=== PATIENT | male | born 1960 ===

== ENCOUNTER 2018-03-25 03:39 | Inpatient (IN) | payer MEDICAID ==
[2018-03-25 03:39] VITALS: BMI 28.1
--- NOTE | 2018-03-25 03:52 | C.PDOC ---
History Of Present Illness 57 y/o male with PMHx of hypertension brought in via ambulance for complaints of chest pain and SOB, worsening over the last couple of hours. No fevers or chills. En route, EMS gave the patient 4 SL nitro, 324 mg aspirin, and 20 mg Lasix. Reports he feels slightly better after. He describes pain as a dull, aching pressure. Patient is also mildly diaphoretic. Time Seen by Provider: 03/25/18 03:51 Chief Complaint (Nursing): Chest Pain History Per: Patient History/Exam Limitations: no limitations Onset/Duration Of Symptoms: Hrs Current Symptoms Are (Timing): Better Severity: Moderate Pain Scale Rating Of: 4 Quality: Dull, Aching, Pressure Associated Symptoms: Dyspnea, Diaphoresis Nitro Therapy Administered: 3, Per EMS, Partial Relief Recent travel outside of the [place]: No Additional History Per: EMS Past Medical History Reviewed: Historical Data, Nursing Documentation, Vital Signs Vital Signs: Last Vital Signs Temp 99.6 F 03/25/18 03:48 Pulse 93 H 03/25/18 04:45 Resp 20 03/25/18 04:45 BP 130/95 H 03/25/18 04:45 Pulse Ox 97 03/25/18 04:45 - Medical History PMH: HTN (non compliant with meds.) Family History: States: Unknown Family Hx - Social History Hx Tobacco Use: No Hx Alcohol Use: Yes Hx Substance Use: No Review Of Systems Constitutional: Positive for: Sweats. Negative for: Fever, Chills ENT: Negative for: Throat Pain Cardiovascular: Positive for: Chest Pain. Negative for: Palpitations Respiratory: Positive for: Shortness of Breath Gastrointestinal: Negative for: Nausea, Vomiting Genitourinary: Negative for: Dysuria Musculoskeletal: Negative for: Back Pain Skin: Negative for: Rash Neurological: Negative for: Weakness, Numbness, Dizziness Psych: Positive for: Anxiety Physical Exam - Physical Exam Appears: Non-toxic, In Acute Distress (appears in discomfort, 4/10) Skin: Warm, Dry Head: Normacephalic Eye(s): bilateral: Normal Inspection Oral Mucosa: Moist Neck: Trachea Midline, Supple Chest: Symmetrical Cardiovascular: Rhythm Regular Respiratory: Rales (at the bases), No Rhonchi, No Wheezing Gastrointestinal/Abdominal: Soft, No Tenderness, No Distention Back: Normal Inspection Extremity: Normal ROM Extremity: Bilateral: Atraumatic, Normal Color And Temperature, Normal ROM Pulses: Left Dorsalis Pedis: Normal, Right Dorsalis Pedis: Normal Neurological/Psych: Oriented x3 Gait: Steady ED Course And Treatment - Laboratory Results Result Diagrams: 03/25/18 04:01 03/25/18 04:36 ECG: Interpreted By Me, Viewed By Me ECG Rhythm: Sinus Tachycardia (1121), Nonspecific Changes O2 Sat by Pulse Oximetry: 100 (RA) Pulse Ox Interpretation: Normal Progress Note: Ordered labs, EKG, CXR. Patient given IV Zofran and Morphine. Disposition Discussed With Dr.: Pramod Michelle Comment: accepted the pt onhis service and took over the care at4:40 AM Doctor Will See Patient In The: ED Counseled Patient/Family Regarding: Studies Performed, Diagnosis - Disposition Disposition: HOSPITALIZED Disposition Time: 03:52 Condition: FAIR Forms: [facility] (Czech) - POA Present On Arrival: None - Clinical Impression Clinical Impression: Chest pain, Dyspnea, CHF (congestive heart failure) - Scribe Statement The provider has reviewed the documentation as recorded by the Scribe (Cherelle Crow) Provider Attestation: All medical record entries made by the Scribe were at my direction and personally dictated by me. I have reviewed the chart and agree that the record accurately reflects my personal performance of the history, physical exam, medical decision making, and the department course for this patient. I have also personally directed, reviewed, and agree with the discharge instructions and disposition. Decision To Admit - Pt Status Changed To: Hospital Disposition Of: Inpatient - Admit Certification Admit to Inpatient:: After my assessment, the patient will require hospitalization for at least two midnights. This is because of the severity of symptoms shown, intensity of services needed, and/or the medical risk in this patient being treated as an outpatient. - InPatient: Physician Admission Certification: I certify that this patient requires 2 or more midnights of care for the following reason:: After my assessment, the patient will require hospitalization for at least two midnights. This is because of the severity of symptoms shown, intensity of services needed, and/or the medical risk in this patient being treated as an outpatient. - . Bed Request Type: Telemetry Admitting Physician: Pramod Michelle Patient Diagnosis: Chest pain, Dyspnea
[2018-03-25 04:07] LABS: BASO # 0.1 K/uL (0.0-0.2); BASO % 1.4 % (0.0-2.0); EOS # 0.2 K/uL (0.0-0.7); EOS % 2.7 % (0.0-4.0); HEMOGLOBIN 13.8 g/dL (12.0-18.0); LYMPH # 1.1 K/uL (1.0-4.3); LYMPH % 14.8 % (20.0-40.0); MEAN CELL VOLUME 93.5 fL (80.0-94.0); MEAN CORPUSCULAR HEMOGLOBIN 30.5 pg (27.0-31.0); MEAN CORPUSCULAR HGB CONC 32.7 g/dL (33.0-37.0); MEAN PLATELET VOLUME 10.5 fL (7.2-11.7); MONO # 0.5 K/uL (0.0-0.8); MONO % 7.3 % (0.0-10.0); NEUT # 5.5 K/uL (1.8-7.0); NEUT % 73.8 % (50.0-75.0); NRBC % 0.1 % (0.0-2.0); RBC 4.52 Mil/uL (4.40-5.90); RED CELL DISTRIBUTION WIDTH 13.9 % (11.5-14.5); URINE BILIRUBIN NEGATIVE (NEGATIVE); URINE BLOOD NEGATIVE (NEGATIVE); URINE CLARITY Clear (Clear); URINE COLOR Colorless (YELLOW); URINE GLUCOSE (UA) NORMAL (Normal); URINE LEUKOCYTE ESTERASE NEG Leu/uL (Negative); URINE PROTEIN NEGATIVE (NEGATIVE); URINE UROBILINOGEN NORMAL mg/dL (0.2-1.0); WHITE BLOOD COUNT 7.4 K/uL (4.8-10.8)
[2018-03-25 04:10] LABS: INR 0.9; PROTHROMBIN TIME 10.3 SECONDS (9.7-12.2)
--- NOTE | 2018-03-25 04:27 | CP.PCM.HP ---
History of Present Illness - History of Present Illness History of Present Illness: Medicine Note for Hospitalist Service CC: shortness of breath HPI: This is a 57 year old male with PMHx of Hypertension not on medication, who presents to the ED with gradual shortness of breath. Patient reports he has been more aware of his breathing the past 1-2 months. Prior to this he was able to ambulate with no issues, however now he feels short of breath when he ambulates more than 1-2 blocks and when he climbs up 1 flight of stairs. He lives on the 3rd floor of his apartment complex, and after the first flight, he now need to stop and rest. At night he admits to sleeping with 1 pillow but more inclined. The past 2 nights he was woken up by the sensation of shortness of breath and choking. On day of admission, he started it was the worse it has ever been. Denied any follow up with PMD or cardio. Denied any associated fever , chills, headache, chest pain, abdominal pain, n/v/d/c, or urinary symptoms. PMHx: Hypertension, Alcohol Use Disorder, ?? History of Right sided Spontaneous Pneumothorax (2014) PSHx: Chest tube Meds: Denied All: NKDA SHx: Denied tobacco or illicit drug use. Admits to drinking beers during festivities FHx: Unremarkable for cardiac issues, CVAs, or malignancies PMD: None Present on Admission - Present on Admission Any Indicators Present on Admission: No Past Patient History - Past Social History Smoking Status: Never Smoked - CARDIAC Hx Hypertension: Yes (non compliant with meds.) - PSYCHIATRIC Hx Substance Use: No Meds Allergies/Adverse Reactions: Allergies Allergy/AdvReac Type Severity Reaction Status Date / Time No Known Allergies Allergy Verified 03/25/18 03:55 Physical Exam - Constitutional Appears: No Acute Distress - Head Exam Head Exam: NORMAL INSPECTION, NORMOCEPHALIC - Eye Exam Eye Exam: EOMI, Normal appearance, PERRL. absent: Nystagmus, Scleral icterus Pupil Exam: NORMAL ACCOMODATION - ENT Exam ENT Exam: Mucous Membranes Moist, Normal Exam - Neck Exam Neck exam: Positive for: Normal Inspection Additional comments: no JVD noted - Respiratory Exam Respiratory Exam: Rales (bilaterally R > L ) - Cardiovascular Exam Cardiovascular Exam: Tachycardia, Gallop - GI/Abdominal Exam GI & Abdominal Exam: Normal Bowel Sounds, Soft. absent: Distended, Guarding, Mass, Organomegaly, Rebound, Tenderness Additional comments: no hepatojugular reflex noted - Rectal Exam Rectal Exam: Deferred - Extremities Exam Extremities exam: Positive for: normal inspection, pedal edema, pedal pulses present. Negative for: tenderness Additional comments: mid pires bilaterally - Back Exam Back exam: NORMAL INSPECTION - Neurological Exam Neurological exam: Alert, Oriented x3 - Psychiatric Exam Psychiatric exam: Normal Affect, Normal Mood - Skin Skin Exam: Dry, Intact, Normal Color, Warm Results - Vital Signs Recent Vital Signs: Last Vital Signs Temp 99.6 F 03/25/18 03:48 Pulse 92 H 03/25/18 04:18 Resp 20 03/25/18 04:18 BP 104/69 03/25/18 04:18 Pulse Ox 97 03/25/18 04:18 - Labs Result Diagrams: 03/25/18 04:01 03/25/18 04:36 Labs: Laboratory Results - last 24 hr 03/25/18 03/25/18 03/25/18 04:01 04:01 04:01 WBC 7.4 D RBC 4.52 Hgb 13.8 Hct 42.2 MCV 93.5 MCH 30.5 MCHC 32.7 L RDW 13.9 Plt Count 195 MPV 10.5 Neut % (Auto) 73.8 Lymph % (Auto) 14.8 L [place] % (Auto) 7.3 Eos % (Auto) 2.7 Baso % (Auto) 1.4 Neut # (Auto) 5.5 Lymph # (Auto) 1.1 [place] # (Auto) 0.5 Eos # (Auto) 0.2 Baso # (Auto) 0.1 PT 10.3 INR 0.9 APTT 26 Urine Color Colorless Urine Clarity Clear Urine pH 5.0 Ur Specific [place] 1.004 Urine Protein Negative Urine Glucose (UA) Normal Urine Ketones Negative Urine Blood Negative Urine Nitrate Negative Urine Bilirubin Negative Urine Urobilinogen Normal Ur Leukocyte Esterase Neg Urine WBC (Auto) 1 Urine RBC (Auto) 2 Assessment & Plan - Assessment and Plan (Free Text) Plan: New Onset Heart Failure - Dyspnea on exertion, orthopnea, generalized fatigue, S3 on exam, bilateral LE edema - EKG: Sinus tachycardia with LVH - CXR: Cardiomegaly noted on portable, effusions bilaterally - BNP: 1090 - Received lasix 40mg IV x 1 in ED - F/U ECHO - Daily Weight, I & Os, fluid and salt restriction - Started on ASA, Lisinopril 2.5mg PO daily, Coreg 3.125mg PO BID, Crestor 5mg PO QHS, Lasix 20mg PO daily (will adjust as needed) Hypertension - Lipid Panel, Thyroid studies WNL - Started on ASA, Lisinopril 2.5mg PO daily, Coreg 3.125mg PO BID, Crestor 5mg PO QHS, Lasix 20mg PO daily (will adjust as needed) - F/U ECHO, HgA1C Hx Alcohol Use Disorder - Cessation encouraged Prophylactic Measures - GI PPX: Protonix - DVT PPX: SCDs, HepQ12 - HHD with fluid and salt restriction DW Dr. Michelle, Lori Cárdenas DO, PGY2
[2018-03-25 04:59] LABS: ALB/GLOB RATIO 1.4 (1.0-2.1); ALT/SGPT 70 U/L (21-72); AST/SGOT 59 U/L (17-59); BLOOD UREA NITROGEN 12 mg/dL (9-20); CALCIUM 8.2 mg/dl (8.6-10.4); GFR AFRICAN-AMERICAN > 60; GFR NON-AFRICAN AMERICAN > 60; LIPASE 64 U/L (23-300)
[2018-03-25 05:10] LABS: B-TYPE NATRIURETIC PEPTIDE 1090 pg/mL (0-900)
--- NOTE | 2018-03-25 07:13 | CP.PCM.PN ---
Subjective - Date & Time of Evaluation Date of Evaluation: 03/25/18 Time of Evaluation: 07:45 - Subjective Subjective: PGY [address] Prasanna Rubalcava. Patient seen and examined at bedside. Patient had no overnight acute events. Patient states his breathing is much improved and denies chest pain, difficulty breathing, constipation, difficulty voiding. Objective - Vital Signs/Intake and Output Vital Signs (last 24 hours): Temp Pulse Resp BP Pulse Ox 99.6 F 99 H 25 H 155/102 H 99 03/25/18 03:48 03/25/18 06:10 03/25/18 06:10 03/25/18 06:10 03/25/18 06:10 Intake and Output: 03/25/18 03/25/18 06:59 18:59 Output Total 700 Balance -700 - Medications Medications: Current Medications Aspirin (Aspirin Chewable) 81 mg PO DAILY [facility] Furosemide (Lasix) 40 mg IVP DAILY [facility] Heparin Sodium (Porcine) (Heparin) 5,000 units SC Q8 [facility] Last Admin: 03/25/18 06:16 Dose: 5,000 units Lisinopril (Zestril) 10 mg PO DAILY [facility] Pantoprazole Sodium (Protonix Ec Tab) 20 mg PO DAILY [facility] Rosuvastatin Calcium (Crestor) 5 mg PO HS [facility]KKI - Labs Labs: 03/25/18 04:01 03/25/18 04:36 PT 10.3 SECONDS (9.7-12.2) 03/25/18 04:01 INR 0.9 03/25/18 04:01 APTT 26 SECONDS (21-34) 03/25/18 04:01 - Constitutional Appears: Non-toxic, No Acute Distress - Head Exam Head Exam: ATRAUMATIC, NORMAL INSPECTION, NORMOCEPHALIC - Eye Exam Eye Exam: EOMI, Normal appearance Pupil Exam: NORMAL ACCOMODATION - ENT Exam ENT Exam: Mucous Membranes Moist - Neck Exam Neck Exam: Full ROM, Normal Inspection - Respiratory Exam Respiratory Exam: Rales Additional comments: B/ L lower lobe rales - Cardiovascular Exam Cardiovascular Exam: Tachycardia, +S1, +S2. absent: Murmur - GI/Abdominal Exam GI & Abdominal Exam: Soft, Normal Bowel Sounds. absent: Firm, Guarding, Rigid - Extremities Exam Extremities Exam: Full ROM, Pedal Edema. absent: Calf Tenderness Additional comments: Faint pitting edema b/l LE - Neurological Exam Neurological Exam: Alert, Awake, Oriented x3 - Psychiatric Exam Psychiatric exam: Normal Affect, Normal Mood - Skin Skin Exam: Dry, Intact, Normal Color, Warm Assessment and Plan - Assessment and Plan (Free Text) Assessment: New Onset Heart Failure - Dyspnea on exertion, orthopnea, generalized fatigue, S3 on exam, bilateral LE edema - EKG: Sinus tachycardia with LVH - CXR: Cardiomegaly noted on portable, effusions bilaterally - BNP: 1090 - Received lasix 40mg IV x 1 in ED - ECHO: LV moderately dilated, Biplane EF ~30%, global hypokinesis of LV, LA midly dilated - possible D/C tomorrow 03/26 - Daily Weight, I & Os, fluid and salt restriction - ASA, Lisinopril 2.5mg PO daily, Coreg 3.125mg PO BID, Crestor 5mg PO QHS, Lasix 20mg PO BID (will adjust as needed) Hypertension - Lipid Panel WNL, Thyroid studies WNL - Started on ASA, Lisinopril 2.5mg PO daily, Coreg 3.125mg PO BID, Crestor 5mg PO QHS, Lasix 20mg PO daily (will adjust as needed) - HgA1C 5.9 Hx Alcohol Use Disorder - Cessation encouraged Prophylactic Measures - GI PPX: Protonix - DVT PPX: SCDs, HepQ12 - HHD with fluid and salt restriction Plan discussed with Dr. Rubalcava.
[2018-03-25 07:43] VITALS: RESP 20
--- NOTE | 2018-03-25 07:56 | CP.PCM.PN ---
Subjective - Date & Time of Evaluation Date of Evaluation: 03/25/18 Time of Evaluation: 07:50 - Subjective Subjective: New onset sob within 2 months, with some orthpnea, EKG showing LVH with strain pattern, HTN, leg edema noticed in ER DD of HTN/CHF, vs HTN/CAD, combo of above. Plan UDS start with diuresis, at least lasix 40mg iv once, if UDS negative start with coreg today, if bp stable may start with ACEI tomorrow, Echo mean while, may need stress test as out patient if trop is normal. See orders for detail. Objective - Vital Signs/Intake and Output Vital Signs (last 24 hours): Temp Pulse Resp BP Pulse Ox 99.0 F 90 20 102/77 97 03/25/18 07:41 03/25/18 07:41 03/25/18 07:41 03/25/18 07:41 03/25/18 07:41 Intake and Output: 03/25/18 03/25/18 06:59 18:59 Output Total 700 Balance -700 - Medications Medications: Current Medications Aspirin (Aspirin Chewable) 81 mg PO DAILY [facility] Carvedilol (Coreg) 3.125 mg PO BID [facility] Furosemide (Lasix) 40 mg IVP DAILY [facility] Heparin Sodium (Porcine) (Heparin) 5,000 units SC Q8 [facility] Last Admin: 03/25/18 06:16 Dose: 5,000 units Pantoprazole Sodium (Protonix Ec Tab) 20 mg PO DAILY [facility] Rosuvastatin Calcium (Crestor) 5 mg PO HS [facility] - Labs Labs: 03/25/18 04:01 03/25/18 04:36 PT 10.3 SECONDS (9.7-12.2) 03/25/18 04:01 INR 0.9 03/25/18 04:01 APTT 26 SECONDS (21-34) 03/25/18 04:01
--- NOTE | 2018-03-25 08:50 | RAD ---
Date of service: 03/25/2018 PROCEDURE: CHEST RADIOGRAPH, 1 VIEW HISTORY: chest pain COMPARISON: 10/14/2016. FINDINGS: LUNGS: The lungs are well inflated. There is mild pulmonary venous congestion. PLEURA: No pneumothorax or pleural fluid seen. CARDIOVASCULAR: There is severe cardiomegaly. OSSEOUS STRUCTURES: No significant abnormalities. VISUALIZED UPPER ABDOMEN: Normal. OTHER FINDINGS: None. IMPRESSION: Severe cardiomegaly and mild pulmonary venous congestion. No active pulmonary disease.
[2018-03-25 09:18] LABS: BARBITURATES, UR NEGATIVE (NEGATIVE); BENZODIAZEPINES, UR NEGATIVE (NEGATIVE); OPIATES, UR NEGATIVE (NEGATIVE); PHENCYCLIDINE, UR NEGATIVE (NEGATIVE)
[2018-03-25] MEDS: Pantoprazole 20 mg EC Tab PO SCH (10:34)
[2018-03-25] MEDS ORDERED: Perflutren Lipid Microsphere 1.5 ML SUS IV ONE (11:29)
--- NOTE | 2018-03-25 12:37 | CARD ---
APPROVED REPORT Date of service: 03/25/2018 EKG Measurement Heart [id number] <Conclusion> Sinus tachycardia Left axis deviation Voltage criteria for left ventricular hypertrophy Nonspecific T wave abnormality Abnormal ECG
[2018-03-25 13:37] LABS: CK-MB 0.6 ng/mL (0.0-3.38); TROPONIN I 0.028 ng/mL (0.00-0.120)
--- NOTE | 2018-03-25 15:30 | CARD ---
APPROVED REPORT Date of service: 03/25/2018 EXAM: Two-dimensional and M-mode echocardiogram with Doppler, color Doppler with contrast. Other Information Quality : GoodRhythm : INDICATION Dyspnea Congestive Heart Failure Echo Enhancing Agent Indication: Endocardial border delineation Agent/Amount Used: Definity 2D DIMENSIONS IVSd1.1 (0.7-1.1cm)LVDd6.7 (3.9-5.9cm) PWd1.2 (0.7-1.1cm)LVDs5.9 (2.5-4.0cm) FS (%) 11.1 % M-Mode DIMENSIONS Left Atrium (MM)4.92 (2.5-4.0cm)IVSd1.25 (0.7-1.1cm) Aortic Root3.47 (2.2-3.7cm)LVDd6.82 (4.0-5.6cm) Aortic Cusp Exc.2.23 (1.5-2.0cm)PWd1.16 (0.7-1.1cm) FS (%) 9 %LVDs6.22 (2.0-3.8cm) LVEF (%)28 (>50%) Mitral Valve MV E Ucwnbino35.5cm/sMV A Hahbezos33.5cm/sE/A ratio0.9 TDI E/Lateral E'0.0E/Medial E'0.0 Tricuspid Valve TR Peak [id number]/sTR Peak [id number] LEFT VENTRICLE The Left Ventricle is moderately dilated. There is borderline concentric left ventricular hypertrophy. Left ventricle systolic function is severely impaired. Biplane Ejection Fraction - 30% There is global hypokinesis of the left ventricle. Transmitral Doppler flow pattern is Grade I-abnormal relaxation pattern. No left ventricle thrombus noted on this study using Definity IV contrast RIGHT VENTRICLE The right ventricle is mildly dilated. Systolic function is mildly reduced. ATRIA The left atrium is moderately dilated. The right atrium is mildly dilated. AORTIC VALVE The aortic valve is normal in structure. No aortic regurgitation is present. There is no aortic valvular stenosis. MITRAL VALVE The mitral valve is normal in structure. Mitral regurgitation is mild. TRICUSPID VALVE The tricuspid valve is normal in structure. There is moderate tricuspid regurgitation. Right ventricular systolic pressure is estimated at - 50 mmHg. There is moderate pulmonary hypertension. PULMONIC VALVE The pulmonary valve is normal in structure. There is trace pulmonic valvular regurgitation. GREAT VESSELS The aortic root is normal in size. The IVC was not well visualized. PERICARDIAL EFFUSION There is no pericardial effusion. <Conclusion> There is borderline concentric left ventricular hypertrophy. The left ventricle is moderately dilated with global hypokinesis. No left ventricle thrombus noted on this study using Definity contrast Left ventricle systolic function is severely impaired. Biplane Ejection Fraction - 30% Transmitral Doppler flow pattern is Grade I-abnormal relaxation pattern. The right ventricular systolic function is mildly reduced. Mild to moderate bi-atrial enlargement Mild mitral regurgitation. There is moderate tricuspid regurgitation. Right ventricular systolic pressure is estimated at - 50 mmHg compatible moderate pulmonary hypertension. There is no pericardial effusion.
--- NOTE | 2018-03-25 19:31 | CP.PCM.CON ---
History of Present Illness - History of Present Illness History of Present Illness: HPI: This is a 57 year old male with PMHx of Hypertension not on medication, who presents to the ED with gradual shortness of breath. Patient reports he has been more aware of his breathing the past 1-2 months. Prior to this he was able to ambulate with no issues, however now he feels short of breath when he ambulates more than 1-2 blocks and when he climbs up 1 flight of stairs. He lives on the 3rd floor of his apartment complex, and after the first flight, he now need to stop and rest. At night he admits to sleeping with 1 pillow but more inclined. The past 2 nights he was woken up by the sensation of shortness of breath and choking. On day of admission, he started it was the worse it has ever been. Denied any follow up with PMD or cardio. Denied any associated fever , chills, headache, chest pain, abdominal pain, n/v/d/c, or urinary symptoms.At the time of exam feeling better. Past Patient History - Past Medical History & Family History Past Medical History?: Yes - Past Social History Smoking Status: Never Smoked - CARDIAC Hx Cardiac Disorders: Yes Hx Hypertension: Yes (non compliant with meds.) - PULMONARY Hx Respiratory Disorders: No - NEUROLOGICAL Hx Neurological Disorder: No - HEENT Hx HEENT Problems: No - RENAL Hx Chronic Kidney Disease: No - ENDOCRINE/METABOLIC Hx Endocrine Disorders: No - HEMATOLOGICAL/ONCOLOGICAL Hx Blood Disorders: No - INTEGUMENTARY Hx Dermatological Problems: No - MUSCULOSKELETAL/RHEUMATOLOGICAL Hx Falls: No - GASTROINTESTINAL Hx Gastrointestinal Disorders: No - GENITOURINARY/GYNECOLOGICAL Hx Genitourinary Disorders: No - PSYCHIATRIC Hx Psychophysiologic Disorder: No Hx Substance Use: No - SURGICAL HISTORY Hx Surgeries: Yes Other/Comment: chest tube - ANESTHESIA Hx Anesthesia: No Hx Anesthesia Reactions: No Hx Malignant Hyperthermia: No Has any member of the family had a problem w/ anesthesia?: No Meds Allergies/Adverse Reactions: Allergies Allergy/AdvReac Type Severity Reaction Status Date / Time coconut Allergy ITCHING Verified 03/25/18 12:53 - Medications Medications: Current Medications Aspirin (Aspirin Chewable) 81 mg PO DAILY [facility] Last Admin: 03/25/18 10:34 Dose: 81 mg Carvedilol (Coreg) 3.125 mg PO BID [facility] Last Admin: 03/25/18 17:49 Dose: 3.125 mg Furosemide (Lasix) 20 mg PO BID [facility] Last Admin: 03/25/18 17:49 Dose: 20 mg Heparin Sodium (Porcine) (Heparin) 5,000 units SC Q8 [facility] Last Admin: 03/25/18 13:22 Dose: 5,000 units Lisinopril (Zestril) 2.5 mg PO DAILY [facility] Last Admin: 03/25/18 10:42 Dose: 2.5 mg Pantoprazole Sodium (Protonix Ec Tab) 20 mg PO DAILY [facility] Last Admin: 03/25/18 10:34 Dose: 20 mg Pneumococcal Polyvalent Vaccine (Pneumovax 23 Vaccine) 0.5 ml IM .ONCE ONE Stop: 03/26/18 10:01 Rosuvastatin Calcium (Crestor) 5 mg PO [facility] Physical Exam - Head Exam Head Exam: NORMOCEPHALIC - Neck Exam Neck exam: Positive for: Normal Inspection - Respiratory Exam Respiratory Exam: NORMAL BREATHING PATTERN - Cardiovascular Exam Cardiovascular Exam: REGULAR RHYTHM - Extremities Exam Extremities exam: Positive for: normal inspection - Neurological Exam Neurological exam: Alert, Oriented x3 Results - Vital Signs Recent Vital Signs: Last Vital Signs Temp 98.8 F 03/25/18 15:00 Pulse 89 03/25/18 15:52 Resp 20 03/25/18 15:00 BP 164/98 H 03/25/18 17:49 Pulse Ox 96 03/25/18 15:00 - Labs Result Diagrams: 03/25/18 04:01 03/25/18 04:36 Labs: Laboratory Results - last 24 hr 03/25/18 03/25/18 03/25/18 04:01 04:01 04:01 WBC 7.4 D RBC 4.52 Hgb 13.8 Hct 42.2 MCV 93.5 MCH 30.5 MCHC 32.7 L RDW 13.9 Plt Count 195 MPV 10.5 Neut % (Auto) 73.8 Lymph % (Auto) 14.8 L [place] % (Auto) 7.3 Eos % (Auto) 2.7 Baso % (Auto) 1.4 Neut # (Auto) 5.5 Lymph # (Auto) 1.1 [place] # (Auto) 0.5 Eos # (Auto) 0.2 Baso # (Auto) 0.1 PT 10.3 INR 0.9 APTT 26 Sodium Potassium Chloride Carbon Dioxide Anion Gap BUN Creatinine Est GFR ( Amer) Est GFR (Non-Af Amer) Random Glucose Hemoglobin A1c Calcium Total Bilirubin AST ALT Alkaline Phosphatase Total Creatine Kinase CK-MB (Mass) Troponin I NT-Pro-B Natriuret Pep Total Protein Albumin Globulin Albumin/Globulin Ratio Triglycerides Cholesterol LDL Cholesterol Direct HDL Cholesterol Lipase Free T4 TSH 3rd Generation Urine Color Colorless Urine Clarity Clear Urine pH 5.0 Ur Specific [place] 1.004 Urine Protein Negative Urine Glucose (UA) Normal Urine Ketones Negative Urine Blood Negative Urine Nitrate Negative Urine Bilirubin Negative Urine Urobilinogen Normal Ur Leukocyte Esterase Neg Urine WBC (Auto) 1 Urine RBC (Auto) 2 Urine Opiates Screen Urine Methadone Screen Ur Barbiturates Screen Ur Phencyclidine Scrn Ur Amphetamines Screen U Benzodiazepines Scrn U Oth Cocaine Metabols U Cannabinoids Screen Alcohol, Quantitative 03/25/18 03/25/18 03/25/18 04:36 05:29 05:29 WBC RBC Hgb Hct MCV MCH MCHC RDW Plt Count MPV Neut % (Auto) Lymph % (Auto) [place] % (Auto) Eos % (Auto) Baso % (Auto) Neut # (Auto) Lymph # (Auto) [place] # (Auto) Eos # (Auto) Baso # (Auto) PT INR APTT Sodium 146 Potassium 4.0 Chloride 108 H Carbon Dioxide 24 Anion Gap 17 BUN 12 Creatinine 0.9 Est GFR ( Amer) > 60 Est GFR (Non-Af Amer) > 60 Random Glucose 155 H Hemoglobin A1c 5.9 Calcium 8.2 L Total Bilirubin 0.4 AST 59 ALT 70 Alkaline Phosphatase 88 Total Creatine Kinase CK-MB (Mass) Troponin I 0.0190 NT-Pro-B Natriuret Pep 1090 H Total Protein 6.7 Albumin 4.0 Globulin 2.8 Albumin/Globulin Ratio 1.4 Triglycerides 63 Cholesterol 165 LDL Cholesterol Direct 97 HDL Cholesterol 48 Lipase 64 Free T4 TSH 3rd Generation 1.52 Urine Color Urine Clarity Urine pH Ur Specific [place] Urine Protein Urine Glucose (UA) Urine Ketones Urine Blood Urine Nitrate Urine Bilirubin Urine Urobilinogen Ur Leukocyte Esterase Urine WBC (Auto) Urine RBC (Auto) Urine Opiates Screen Urine Methadone Screen Ur Barbiturates Screen Ur Phencyclidine Scrn Ur Amphetamines Screen U Benzodiazepines Scrn U Oth Cocaine Metabols U Cannabinoids Screen Alcohol, Quantitative < 10 03/25/18 03/25/18 03/25/18 05:29 08:30 12:52 WBC RBC Hgb Hct MCV MCH MCHC RDW Plt Count MPV Neut % (Auto) Lymph % (Auto) [place] % (Auto) Eos % (Auto) Baso % (Auto) Neut # (Auto) Lymph # (Auto) [place] # (Auto) Eos # (Auto) Baso # (Auto) PT INR APTT Sodium Potassium Chloride Carbon Dioxide Anion Gap BUN Creatinine Est GFR ( Amer) Est GFR (Non-Af Amer) Random Glucose Hemoglobin A1c Calcium Total Bilirubin AST ALT Alkaline Phosphatase Total Creatine Kinase 84 CK-MB (Mass) 0.60 Troponin I 0.0280 NT-Pro-B Natriuret Pep Total Protein Albumin Globulin Albumin/Globulin Ratio Triglycerides Cholesterol LDL Cholesterol Direct HDL Cholesterol Lipase Free T4 0.89 TSH 3rd Generation Urine Color Urine Clarity Urine pH Ur Specific [place] Urine Protein Urine Glucose (UA) Urine Ketones Urine Blood Urine Nitrate Urine Bilirubin Urine Urobilinogen Ur Leukocyte Esterase Urine WBC (Auto) Urine RBC (Auto) Urine Opiates Screen Negative Urine Methadone Screen Negative Ur Barbiturates Screen Negative Ur Phencyclidine Scrn Negative Ur Amphetamines Screen Negative U Benzodiazepines Scrn Negative U Oth Cocaine Metabols Negative U Cannabinoids Screen Negative Alcohol, Quantitative Assessment & Plan (1) CHF (congestive heart failure) Assessment and Plan: Resolved, Control BP. Status: Acute (2) Dyspnea Assessment and Plan: Secondary to Diastolic dysfunction secondary to Uncontrolled HTN. Needs compliance and behaviour modification. Status: Acute
--- NOTE | 2018-03-25 20:37 | CARD ---
APPROVED REPORT Date of service: 03/25/2018 EKG Measurement Heart [id number] <Conclusion> Normal sinus rhythm Possible Left atrial enlargement Left axis deviation Left ventricular hypertrophy Possible Lateral infarct, age undetermined Abnormal ECG
[2018-03-25 22:07] LABS: CK-MB 0.46 ng/mL (0.0-3.38); TROPONIN I 0.034 ng/mL (0.00-0.120)
--- NOTE | 2018-03-26 06:22 | CP.PCM.PN ---
Objective - Vital Signs/Intake and Output Vital Signs (last 24 hours): Temp Pulse Resp BP Pulse Ox 98.4 F 87 20 142/92 H 96 03/26/18 00:00 03/26/18 00:00 03/26/18 00:00 03/26/18 00:00 03/26/18 00:00 Intake and Output: 03/25/18 03/26/18 18:59 06:59 Intake Total 680 Balance 680 - Medications Medications: Current Medications Aspirin (Aspirin Chewable) 81 mg PO DAILY [facility] Last Admin: 03/25/18 10:34 Dose: 81 mg Carvedilol (Coreg) 3.125 mg PO BID [facility] Last Admin: 03/25/18 17:49 Dose: 3.125 mg Furosemide (Lasix) 20 mg PO BID [facility] Last Admin: 03/25/18 17:49 Dose: 20 mg Heparin Sodium (Porcine) (Heparin) 5,000 units SC Q8 [facility] Last Admin: 03/25/18 21:25 Dose: 5,000 units Lisinopril (Zestril) 2.5 mg PO DAILY [facility] Last Admin: 03/25/18 10:42 Dose: 2.5 mg Pantoprazole Sodium (Protonix Ec Tab) 20 mg PO DAILY [facility] Last Admin: 03/25/18 10:34 Dose: 20 mg Pneumococcal Polyvalent Vaccine (Pneumovax 23 Vaccine) 0.5 ml IM .ONCE ONE Stop: 03/26/18 10:01 Rosuvastatin Calcium (Crestor) 5 mg PO HS [facility] Last Admin: 03/25/18 21:25 Dose: 5 mg - Labs Labs: 03/25/18 04:01 03/25/18 04:36 PT 10.3 SECONDS (9.7-12.2) 03/25/18 04:01 INR 0.9 03/25/18 04:01 APTT 26 SECONDS (21-34) 03/25/18 04:01
[2018-03-26 07:24] LABS: BASO # 0.1 K/uL (0.0-0.2); BASO % 1.3 % (0.0-2.0); EOS # 0.1 K/uL (0.0-0.7); EOS % 2.6 % (0.0-4.0); LYMPH # 1.2 K/uL (1.0-4.3); LYMPH % 20.8 % (20.0-40.0); MEAN CELL VOLUME 92.4 fL (80.0-94.0); MEAN CORPUSCULAR HEMOGLOBIN 31.3 pg (27.0-31.0); MEAN CORPUSCULAR HGB CONC 33.9 g/dL (33.0-37.0); MEAN PLATELET VOLUME 10.8 fL (7.2-11.7); MONO # 0.6 K/uL (0.0-0.8); MONO % 11.3 % (0.0-10.0); NEUT # 3.6 K/uL (1.8-7.0); NRBC % 0.2 % (0.0-2.0); RBC 4.49 Mil/uL (4.40-5.90); RED CELL DISTRIBUTION WIDTH 13.5 % (11.5-14.5); WHITE BLOOD COUNT 5.6 K/uL (4.8-10.8)
[2018-03-26 07:49] VITALS: TEMP 98.9; O2SAT 97
[2018-03-26 08:00] LABS: ALB/GLOB RATIO 1.6 (1.0-2.1); ALT/SGPT 60 U/L (21-72); AST/SGOT 45 U/L (17-59); CALCIUM 8.8 mg/dl (8.6-10.4); GFR AFRICAN-AMERICAN > 60; GFR NON-AFRICAN AMERICAN > 60
[2018-03-26 08:07] LABS: BLOOD UREA NITROGEN 17 mg/dL (9-20)
[2018-03-26] MEDS ORDERED: Pneumococcal 23-Valent Vaccine IM ONE (10:00)
[2018-03-26 10:11] VITALS: BP 161/111; PULSE 91
[2018-03-26] MEDS: Pantoprazole 20 mg EC Tab PO SCH (10:11)
--- NOTE | 2018-03-26 11:17 | CP.PCM.PCO ---
Physician Communication Note - Physician Communication Note Physician Communication Note: Please see above
--- NOTE | 2018-03-26 11:47 | CARD ---
APPROVED REPORT Date of service: 03/25/2018 EKG Measurement Heart [id number] <Conclusion> Normal sinus rhythm Left axis deviation Voltage criteria for left ventricular hypertrophy Possible Lateral infarct, age undetermined Abnormal ECG
--- NOTE | 2018-03-26 17:10 | CP.PCM.DIS ---
Provider - Provider Date of Admission: 03/25/18 04:34 Attending physician: Prasanna Rubalcava MD Time Spent in preparation of Discharge (in minutes): 40 Diagnosis - Discharge Diagnosis (1) CHF (congestive heart failure) Status: Acute Comment: Patient had difficulty breathing on admission. Patient was given lasix and symptoms improved. Patient discharged on lasix. Hospital Course - Lab Results Lab Results: Most Recent Lab Values WBC 5.6 K/uL (4.8-10.8) 03/26/18 07:06 RBC 4.49 Mil/uL (4.40-5.90) 03/26/18 07:06 Hgb 14.0 g/dL (12.0-18.0) 03/26/18 07:06 Hct 41.5 % (35.0-51.0) 03/26/18 07:06 MCV 92.4 fL (80.0-94.0) 03/26/18 07:06 MCH 31.3 pg (27.0-31.0) H 03/26/18 07:06 MCHC 33.9 g/dL (33.0-37.0) 03/26/18 07:06 RDW 13.5 % (11.5-14.5) 03/26/18 07:06 Plt Count 181 K/uL (130-400) 03/26/18 07:06 MPV 10.8 fL (7.2-11.7) 03/26/18 07:06 Neut % (Auto) 64.0 % (50.0-75.0) 03/26/18 07:06 Lymph % (Auto) 20.8 % (20.0-40.0) 03/26/18 07:06 [place] % (Auto) 11.3 % (0.0-10.0) H 03/26/18 07:06 Eos % (Auto) 2.6 % (0.0-4.0) 03/26/18 07:06 Baso % (Auto) 1.3 % (0.0-2.0) 03/26/18 07:06 Neut # (Auto) 3.6 K/uL (1.8-7.0) 03/26/18 07:06 Lymph # (Auto) 1.2 K/uL (1.0-4.3) 03/26/18 07:06 [place] # (Auto) 0.6 K/uL (0.0-0.8) 03/26/18 07:06 Eos # (Auto) 0.1 K/uL (0.0-0.7) 03/26/18 07:06 Baso # (Auto) 0.1 K/uL (0.0-0.2) 03/26/18 07:06 PT 10.3 SECONDS (9.7-12.2) 03/25/18 04:01 INR 0.9 03/25/18 04:01 APTT 26 SECONDS (21-34) 03/25/18 04:01 Sodium 141 mmol/L (132-148) 03/26/18 07:06 Potassium 4.0 mmol/L (3.6-5.2) 03/26/18 07:06 Chloride 103 mmol/L (98-107) 03/26/18 07:06 Carbon Dioxide 28 mmol/L (22-30) 03/26/18 07:06 Anion Gap 15 (10-20) 03/26/18 07:06 BUN 17 mg/dL (9-20) 03/26/18 07:06 Creatinine 1.0 mg/dL (0.8-1.5) 03/26/18 07:06 Est GFR ( Amer) > 60 03/26/18 07:06 Est GFR (Non-Af Amer) > 60 03/26/18 07:06 Random Glucose 121 mg/dL (75-110) H 03/26/18 07:06 Hemoglobin A1c 5.9 % (4.2-6.5) 03/25/18 05:29 Calcium 8.8 mg/dl (8.6-10.4) 03/26/18 07:06 Phosphorus 3.2 mg/dL (2.5-4.5) 03/26/18 07:06 Magnesium 2.1 mg/dL (1.6-2.3) 03/26/18 07:06 Total Bilirubin 0.7 mg/dL (0.2-1.3) 03/26/18 07:06 AST 45 U/L (17-59) 03/26/18 07:06 ALT 60 U/L (21-72) 03/26/18 07:06 Alkaline Phosphatase 78 U/L (38-126) 03/26/18 07:06 Total Creatine Kinase 80 U/L (55-170) 03/25/18 21:41 CK-MB (Mass) 0.46 ng/mL (0.0-3.38) 03/25/18 21:41 Troponin I 0.0340 ng/mL (0.00-0.120) 03/25/18 21:41 NT-Pro-B Natriuret Pep 1090 pg/mL (0-900) H 03/25/18 04:36 Total Protein 6.5 g/dL (6.3-8.3) 03/26/18 07:06 Albumin 4.0 g/dL (3.5-5.0) 03/26/18 07:06 Globulin 2.5 gm/dL (2.2-3.9) 03/26/18 07:06 Albumin/Globulin Ratio 1.6 (1.0-2.1) 03/26/18 07:06 Triglycerides 63 mg/dL (0-149) 03/25/18 05:29 Cholesterol 165 mg/dL (0-199) 03/25/18 05:29 LDL Cholesterol Direct 97 mg/dL (0-129) 03/25/18 05:29 HDL Cholesterol 48 mg/dL (30-70) 03/25/18 05:29 Lipase 64 U/L (23-300) 03/25/18 04:36 Free T4 0.89 ng/dL (0.78-2.19) 03/25/18 05:29 TSH 3rd Generation 1.52 mIU/L (0.46-4.68) 03/25/18 05:29 Urine Color Colorless (YELLOW) 03/25/18 04:01 Urine Clarity Clear (Clear) 03/25/18 04:01 Urine pH 5.0 (5.0-8.0) 03/25/18 04:01 Ur Specific [place] 1.004 (1.003-1.030) 03/25/18 04:01 Urine Protein Negative mg/dL (NEGATIVE) 03/25/18 04:01 Urine Glucose (UA) Normal mg/dL (Normal) 03/25/18 04:01 Urine Ketones Negative mg/dL (NEGATIVE) 03/25/18 04:01 Urine Blood Negative (NEGATIVE) 03/25/18 04:01 Urine Nitrate Negative (NEGATIVE) 03/25/18 04:01 Urine Bilirubin Negative (NEGATIVE) 03/25/18 04:01 Urine Urobilinogen Normal mg/dL (0.2-1.0) 03/25/18 04:01 Ur Leukocyte Esterase Neg Narinder/uL (Negative) 03/25/18 04:01 Urine WBC (Auto) 1 /hpf (0-5) 03/25/18 04:01 Urine RBC (Auto) 2 /hpf (0-3) 03/25/18 04:01 Urine Opiates Screen Negative (NEGATIVE) 03/25/18 08:30 Urine Methadone Screen Negative (NEGATIVE) 03/25/18 08:30 Ur Barbiturates Screen Negative (NEGATIVE) 03/25/18 08:30 Ur Phencyclidine Scrn Negative (NEGATIVE) 03/25/18 08:30 Ur Amphetamines Screen Negative (NEGATIVE) 03/25/18 08:30 U Benzodiazepines Scrn Negative (NEGATIVE) 03/25/18 08:30 U Oth Cocaine Metabols Negative (NEGATIVE) 03/25/18 08:30 U Cannabinoids Screen Negative (NEGATIVE) 03/25/18 08:30 Alcohol, Quantitative < 10 mg/dl (0-10) 03/25/18 04:36 - Hospital Course Hospital Course: This is a 57 year old male with PMHx of Hypertension not on medication, who presents to the ED with gradual shortness of breath. Patient reports he has been more aware of his breathing the past 1-2 months. Prior to this he was able to ambulate with no issues, however now he feels short of breath when he ambulates more than 1-2 blocks and when he climbs up 1 flight of stairs. He lives on the 3rd floor of his apartment complex, and after the first flight, he now need to stop and rest. At night he admits to sleeping with 1 pillow but more inclined. The past 2 nights he was woken up by the sensation of shortness of breath and choking. On day of admission, he started it was the worse it has ever been. Denied any follow up with PMD or cardio. Denied any associated fever , chills, headache, chest pain, abdominal pain, n/v/d/c, or urinary symptoms. During hospital stay, patient was worked up for CHF 2/2 to his uncontrolled hypertension. His initial imaging results were: XRAY: Severe cardiomegaly and mild pulmonary venous congestion. No active pulmonary disease. EKG: Normal sinus rhythm, left axis deviation, voltage criteria for left ventricular hypertrophy, possible lateral infarct ECHO: Borderline concentric left ventricular hypertrophy, left ventricle that is moderately dialted with global hypokinesis, no ventricle thrombus noted, left ventricular systolic EF ~30%, Grade 1 abnomral relaxation pattern, right ventricular systolic function is midly reduced, mild to moderate bi-atrial enlargement, mild mitral regurgitation, moderate tricuspid regurgitation, Right ventricular systolic pressure is estimated @ 50 mmHG, no pericardial effusion Patient was started on lasix 20 mg BID, co-reg 3.125mg BID, lisinopril 2.5mg Daily, aspirin 81 mg daily, & crestor 5 mg daily for control and treatment of his CHF & HTN. Patient symptoms greatly improved. Patient blood pressure remained slightly elevated (SBP 150s). Patient was given on day of discharge an extra dose of co-reg 3.125mg BID and lisinopril 2.5mg and the blood pressure came into control (SBP 120s). Patient medications upon discharge were adjusted to co-reg 6.25mg BID, lisnopril 5mg daily, lasix 20mg BID, aspirin 81 mg daily, crestor 5mg daily. Cardiology was consulted and Dr. Castro stated patients CHF was resolved. The above is only a summary of the patients stay during his hospitalization. For more information please refer to patients EMR. Below are the instructions that were provided to the patient upon discharge. 1). Schedule appointment with the [facility] located in [facility] [address] by calling [phone] for an appointment that should take place in 7 to 10 days. The doctors here will be your primary care physicians to help coordinate your health care and to provide you with future prescriptions that you will need to have filled at your pharmacy. 2). The following prescriptions were provided to you. Please use as directed: Coreg 6.25 mg, 1 tablet by mouth 2 times a day (8AM and 8 PM), Dispense #60, NO refills Lisinopril 5 mg, 1 tablet by mouth 1 time a day (2 PM), Dispense #30, NO refills Aspirin 81 mg, 1 tablet by mouth 1 time a day (8 AM), Dispense #30, NO refills Furosemide 20 mg, 1 tablet by mouth 2 times a day (8 AM and 5 PM), Dispense #60 , NO refills Atorvastatin 10 mg, 1 tablet by mouth 1 time a day (8 PM), Dispense #30, NO refills 3). Please make sure to have a banana every day with your breakfast. 4). Please follow the dietary and fluid intake instructions on the heart failure diet in [place] that was given to you. 5). Please do not drink alcohol. 6). Please take care and be well. Discharge Exam - Head Exam Head Exam: ATRAUMATIC, NORMAL INSPECTION, NORMOCEPHALIC - Eye Exam Eye Exam: EOMI, Normal appearance, PERRL Pupil Exam: NORMAL ACCOMODATION - Respiratory Exam Respiratory Exam: NORMAL BREATHING PATTERN, UNREMARKABLE. absent: Rales, Wheezes, Respiratory Distress - Cardiovascular Exam Cardiovascular Exam: +S1, +S2. absent: Irregular Rhythm, Systolic Murmur - GI/Abdominal Exam GI & Abdominal Exam: Normal Bowel Sounds, Unremarkable. absent: Distended, Firm , Guarding - Extremities Exam Additional comments: Trace pitting edema b/l LE No calf tenderness, pulses intack b/l LE - Neurological Exam Neurological exam: Alert, Normal Gait, Oriented x3 - Psychiatric Exam Psychiatric exam: Normal Affect, Normal Mood - Skin Skin Exam: Dry, Intact, Normal Color, Warm Discharge Plan - Discharge Medications Prescriptions: Aspirin [Aspirin Chewable] 81 mg PO DAILY #30 chew Atorvastatin [Lipitor] 10 mg PO DAILY #30 tab Carvedilol [Coreg] 6.25 mg PO BID #60 tab Furosemide [Lasix] 20 mg PO BID #60 tab Lisinopril [Zestril] 5 mg PO DAILY #30 tab - Follow Up Plan Condition: FAIR Disposition: HOME/ ROUTINE Instructions: Heart Failure, Adult (DC), Chest Pain (DC), Aspirin, Atorvastatin , Carvedilol, Furosemide, Lisinopril Additional Instructions: 1). Schedule appointment with the [facility] located in [facility] [address] by calling [phone] for an appointment that should take place in 7 to 10 days. The doctors here will be your primary care physicians to help coordinate your health care and to provide you with future prescriptions that you will need to have filled at your pharmacy. 2). The following prescriptions were provided to you. Please use as directed: Coreg 6.25 mg, 1 tablet by mouth 2 times a day (8AM and 8 PM), Dispense #60, NO refills Lisinopril 5 mg, 1 tablet by mouth 1 time a day (2 PM), Dispense #30, NO refills Aspirin 81 mg, 1 tablet by mouth 1 time a day (8 AM), Dispense #30, NO refills Furosemide 20 mg, 1 tablet by mouth 2 times a day (8 AM and 5 PM), Dispense #60 , NO refills Atorvastatin 10 mg, 1 tablet by mouth 1 time a day (8 PM), Dispense #30, NO refills 3). Please make sure to have a banana every day with your breakfast. 4). Please follow the dietary and fluid intake instructions on the heart failure diet in [place] that was given to you. 5). Please do not drink alcohol. 6). Please take care and be well. 1). Programe louisa tereza con el [facility] localizado en el [address] [facility] al [phone] para louisa tereza que debe tener lugar en 7 a 10 clement. Los mdicos aqu sern damaso mdicos de atencin primaria para ayudar a coordinar [place] atencin mdica y para proporcionarle recetas futuras que deber llenar en [place] farmacia. 2). Las siguientes prescripciones fueron provistas a usted. Por favor use ozzy se indica: Coreg 6.25 mg, 1 comprimido por va oral 2 veces al da (8 a.m. y 8 p.m.), Suministro # 60, sin recargas Lisinopril 5 mg, 1 tableta por va oral 1 vez al da (2 PM), Dispensa # 30, NO recargas Aspirina 81 mg, 1 tableta por va oral 1 vez al da (8 AM), Dispensa # 30, NO recargas Furosemida 20 mg, 1 tableta por va oral 2 veces al da (8 a.m. y 5 p.m.), Suministro n. 60, sin reposicin Atorvastatina 10 mg, 1 tableta por va oral 1 vez al da (8 p. M.), Dispensaci n n. 30, sin reposicin. 3). Por favor, asegrese de channing un pltano todos los clement con [place] desayuno. 4). Siga las instrucciones de ingesta de lquidos y dieta sobre la dieta para la insuficiencia cardaca en espaol que le dieron. 5). Por favor no braulio alcohol 6). Por favor cudate y estate alok. Clinical Quality Measures - CQM - Heart Failure Ejection Fraction: Less Than 40 % TIMA Inhibitor Prescribed: Yes Beta-Neisha Prescribed: Carvedilol Angiotensin II Receptor Neisha Prescribed: No Contraindication/Reason for not providing: ACEi prescribed AnticoagulationTherapy for Atrial Fibrillation/Atrialflutter: No Contraindication/Reason for not providing: pt does not have a fib Aldosterone Antagonist Prescribed: No Contraindication/Reason for not providing: ACEi prescribed Hydralazine Nitrate Prescribed: No Contraindication/Reason for not providing: Not indicated Implantable Cardioverter Defibrillator Therapy: No Contraindication/Reason for not providing: Not indicated Cardiac Resynchronization Therapy Prescribed: No Contraindication/Reason for not providing: Not indicated
== END 2018-03-26 17:10 | disposition home or self-care (01) | DRG 293 ==
LOC: C.ER 03:39 → C.9E 04:34 → C.5S 07:27 → UNDODISIN 03-26 15:10
PROVIDERS: ADMIT Family Medicine; ATTEND Family Medicine
DX: I11.0 Hypertensive heart disease with heart failure (principal); I50.41 Acute combined systolic (congestive) and diastolic (congestive) heart failure; Z91.14 Patient's other noncompliance with medication regimen; Z87.09 Personal history of other diseases of the respiratory system; Z79.899 Other long term (current) drug therapy

== ENCOUNTER 2019-01-31 05:17 | Inpatient (IN) | payer OTHER ==
[2019-01-31 05:18] VITALS: BMI 28.1
--- NOTE | 2019-01-31 05:34 | C.PDOC ---
History Of Present Illness 58 y/o male, with history of CHF and hypertension, noncompliant with medications, comes in to ED for evaluation, reportedly feeling SOB since yesterday. Patient also notes of mild cough but no fever. Denies other complaints. symptoms worse with laying down. no recent travel, surgeyr h/o of blood clot. <Jeffery Donovan - Last Filed: 01/31/19 06:37> History Per: Patient History/Exam Limitations: no limitations Onset/Duration Of Symptoms: Days Current Symptoms Are (Timing): Still Present <Jeffery Donovan - Last Filed: 01/31/19 06:37> <Megha Don - Last Filed: 01/31/19 08:03> <She Shelton - Last Filed: 01/31/19 10:30> Time Seen by Provider: 01/31/19 05:30 Chief Complaint (Nursing): Shortness Of Breath Past Medical History Reviewed: Historical Data, Nursing Documentation, Vital Signs Vital Signs: Last Vital Signs Temp 98.3 F 01/31/19 05:22 Pulse 117 H 01/31/19 05:22 Resp 22 01/31/19 05:22 BP 194/125 H 01/31/19 05:22 Pulse Ox 94 L 01/31/19 05:22 Primary Care Provider: FAMILY PROVIDER,NO - Medical History PMH: HTN (non compliant with meds.) Denies: Chronic Kidney Disease Family History: States: No Known Family Hx - Social History Hx Tobacco Use: No Hx Alcohol Use: Yes Hx Substance Use: No - Immunization History Hx Tetanus Toxoid Vaccination: No Hx Influenza Vaccination: No Hx Pneumococcal Vaccination: No <Jeffery Donovan - Last Filed: 01/31/19 06:37> Vital Signs: Last Vital Signs Temp 98.8 F 01/31/19 07:29 Pulse 102 H 01/31/19 07:29 Resp 16 01/31/19 07:29 BP 166/118 H 01/31/19 07:29 Pulse Ox 98 01/31/19 07:29 <Megha Don - Last Filed: 01/31/19 08:03> Vital Signs: Last Vital Signs Temp 98.8 F 01/31/19 07:29 Pulse 102 H 01/31/19 08:03 Resp 15 01/31/19 08:03 BP 153/112 H 01/31/19 08:03 Pulse Ox 95 01/31/19 08:03 <She Shelton - Last Filed: 01/31/19 10:30> Review Of Systems Except As Marked, All Systems Reviewed And Found Negative. Constitutional: Negative for: Fever, Chills Cardiovascular: Negative for: Chest Pain, Palpitations Respiratory: Positive for: Cough, Shortness of Breath Gastrointestinal: Negative for: Nausea, Vomiting <Jeffery Donovan - Last Filed: 01/31/19 06:37> Physical Exam - Physical Exam Appears: Non-toxic, No Acute Distress Skin: Warm, Dry Head: Normacephalic Eye(s): bilateral: Normal Inspection Oral Mucosa: Moist Throat: Normal Neck: Supple Cardiovascular: Rhythm Regular, No Murmur Respiratory: Rales (b/l bases), No Rhonchi, No Wheezing, Other (diminished breath sounds symmetrically at the bases) Gastrointestinal/Abdominal: Soft, No Tenderness Extremity: Other (+3 edema bilaterally ) Extremity: Bilateral: Atraumatic, Normal ROM Neurological/Psych: Oriented x3, Normal Speech <Jeffery Donovan - Last Filed: 01/31/19 06:37> ED Course And Treatment - Laboratory Results Result Diagrams: 01/31/19 05:41 01/31/19 05:41 ECG: Interpreted By Me, Viewed By Me ECG Rhythm: Sinus Tachycardia Interpretation Of ECG: LVH with repolarization abnormality. Rate From EC O2 Sat by Pulse Oximetry: 94 (RA) Pulse Ox Interpretation: Normal <Jeffery Donovan Last Filed: 01/31/19 06:37> - Laboratory Results Result Diagrams: 01/31/19 05:41 01/31/19 05:41 Lab Results: PT 11.4 SECONDS (9.7-12.2) 01/31/19 05:41 INR 1.0 01/31/19 05:41 APTT 31.5 SECONDS (21-34) 01/31/19 05:41 Troponin I 0.0530 ng/mL (0.00-0.120) 01/31/19 05:41 NT-Pro-B Natriuret Pep 1190 pg/mL (0-900) H 01/31/19 05:41 Total Bilirubin 1.2 mg/dL (0.2-1.3) 01/31/19 05:41 AST 71 U/L (17-59) H D 01/31/19 05:41 ALT 33 U/L (21-72) 01/31/19 05:41 Alkaline Phosphatase 76 U/L (38-126) 01/31/19 05:41 Total Protein 8.1 g/dL (6.3-8.3) 01/31/19 05:41 Albumin 4.8 g/dL (3.5-5.0) 01/31/19 05:41 Globulin 3.3 gm/dL (2.2-3.9) 01/31/19 05:41 Albumin/Globulin Ratio 1.5 (1.0-2.1) 01/31/19 05:41 <Megha Don - Last Filed: 01/31/19 08:03> - Laboratory Results Result Diagrams: 01/31/19 05:41 01/31/19 05:41 Lab Results: PT 11.4 SECONDS (9.7-12.2) 01/31/19 05:41 INR 1.0 01/31/19 05:41 APTT 31.5 SECONDS (21-34) 01/31/19 05:41 Troponin I 0.0530 ng/mL (0.00-0.120) 01/31/19 05:41 NT-Pro-B Natriuret Pep 1190 pg/mL (0-900) H 01/31/19 05:41 Total Bilirubin 1.2 mg/dL (0.2-1.3) 01/31/19 05:41 AST 71 U/L (17-59) H D 01/31/19 05:41 ALT 33 U/L (21-72) 01/31/19 05:41 Alkaline Phosphatase 76 U/L (38-126) 01/31/19 05:41 Total Protein 8.1 g/dL (6.3-8.3) 01/31/19 05:41 Albumin 4.8 g/dL (3.5-5.0) 01/31/19 05:41 Globulin 3.3 gm/dL (2.2-3.9) 01/31/19 05:41 Albumin/Globulin Ratio 1.5 (1.0-2.1) 01/31/19 05:41 <She Shelton - Last Filed: 01/31/19 10:30> Medical Decision Making Medical Decision Making: chf ef 30%, non complinat rales b/l bases Plan: --EKG --Labs --Chest XR cxr cardiomegaly, pulm vasc congestion. duncan harvey. accepted dr mendieta. legs symmetric swelling non complaint pt. <Jeffery Donovan - Last Filed: 01/31/19 06:37> Disposition - Disposition Disposition Time: 06:38 <Jeffery Donovan - Last Filed: 01/31/19 06:37> <Megha Don - Last Filed: 01/31/19 08:03> <She Shelton - Last Filed: 01/31/19 10:30> - Disposition Disposition: HOSPITALIZED Condition: FAIR - Clinical Impression Clinical Impression: Alcohol intoxication, Chronic congestive heart failure - Scribe Statement The provider has reviewed the documentation as recorded by the Helene Peters Provider Attestation: All medical record entries made by the Brunildaibe were at my direction and personally dictated by me. I have reviewed the chart and agree that the record accurately reflects my personal performance of the history, physical exam, medical decision making, and the department course for this patient. I have also personally directed, reviewed, and agree with the discharge instructions and disposition. <Jeffery Donovan - Last Filed: 01/31/19 06:37> Decision To Admit - Pt Status Changed To: Hospital Disposition Of: Inpatient - Admit Certification Admit to Inpatient:: After my assessment, the patient will require hospitalization for at least two midnights. This is because of the severity of symptoms shown, intensity of services needed, and/or the medical risk in this patient being treated as an outpatient. - InPatient: Physician Admission Certification: I certify that this patient requires 2 or more midnights of care for the following reason:: needs lasx iv - . Bed Request Type: Telemetry Admitting Physician: Julia Mendieta <Jeffery Donovan - Last Filed: 01/31/19 06:37> <Megha Don - Last Filed: 01/31/19 08:03> <She Shelton - Last Filed: 01/31/19 10:30> - . Patient Diagnosis: Alcohol intoxication, Chronic congestive heart failure Addendum Addendum: 01/31/19 08:05 58 year old male seen by overnight team, given Lasix and admitted to Telemetry for HTN and CHF. Patient is an alcoholic and is currently going through withdrawals with tremors and nausea. Patient has a high CIWA score and was given Ativan in the ED. Requested for Crisis team to evaluate patient for detox admission. 01/31/19 10:23 Patient was seen by Crisis and accepted to Detox. Patient is persistently slightly hypoxic at 88 on room air. Patient feels more comfortable after Ativan. Spoke with Dr. Narcisa Rubalcava who is familar with patient and sees him in the Clinic. Reports patient has an EF of 30 and needs 24 hours of diuresis. Patient will go to Telemetry as originally planned. <She Shelton M - Last Filed: 01/31/19 10:30>
[2019-01-31 05:52] LABS: PARTIAL THROMBOPLASTIN TIME 31.5 SECONDS (21-34); PROTHROMBIN TIME 11.4 SECONDS (9.7-12.2)
[2019-01-31 05:53] LABS: BASO # 0.1 K/uL (0.0-0.2); EOS # 0.1 K/uL (0.0-0.7); EOS % 1.3 % (0.0-4.0); HEMOGLOBIN 13.3 g/dL (12.0-18.0); LYMPH % 14.9 % (20.0-40.0); MEAN CORPUSCULAR HEMOGLOBIN 30.4 pg (27.0-31.0); MEAN PLATELET VOLUME 10.3 fL (7.2-11.7); MONO # 0.6 K/uL (0.0-0.8); NEUT # 4.8 K/uL (1.8-7.0); NEUT % 73.8 % (50.0-75.0); RBC 4.38 Mil/uL (4.40-5.90); RED CELL DISTRIBUTION WIDTH 14.4 % (11.5-14.5); WHITE BLOOD COUNT 6.5 K/uL (4.8-10.8)
[2019-01-31 06:11] LABS: BLOOD UREA NITROGEN 8 mg/dL (9-20); CALCIUM 8.8 mg/dl (8.6-10.4); GFR NON-AFRICAN AMERICAN > 60
[2019-01-31 06:14] LABS: ALB/GLOB RATIO 1.5 (1.0-2.1); ALBUMIN 4.8 g/dL (3.5-5.0); ALT/SGPT 33 U/L (21-72); AST/SGOT 71 U/L (17-59)
[2019-01-31 06:22] LABS: B-TYPE NATRIURETIC PEPTIDE 1190 pg/mL (0-900)
--- NOTE | 2019-01-31 08:24 | CP.PCM.HP ---
<Lawson Cheema - Last Filed: 01/31/19 10:51> History of Present Illness - History of Present Illness History of Present Illness: PGY3 H&P for Hospitalist service Patient is a 58 y/o male, with history of EtOH abuse, CHF and hypertension, who presents for worsening shortness of breath and alcohol abuse. Patient with admission to [facility] in 03/2018, and was diagnosed with systolic CHF. Patient ad mits he did not follow up with the clinic or take any medication prescribed at discharge. He states that over the past few days he has been unable to walk his normal "4 blocks" and has become SOB just walking the few steps up to his apartment. He states he normally is able to sleep flat but lately has been using two pillows to prop himself up which "helped a little." Admits dry cough, and leg swelling is "as bad as it was when he was admitted last year." Denies fever, chills, chest pain, dyspnea at rest, palpitations, dysuria, or urinary frequency. Patient endorses 5 year history of alcohol abuse with approximately "5 beers per day +/- vodka." Denies history of delirium tremens or hallucinations. Denies other drug use or tobacco history. PMD: none PSHx: chest tube Allergy: coconut Meds: none Social: lives alone in [facility] in [place]; Alcohol as above; denies tobacco/illicit drugs Family: denies pertinent history Present on Admission - Present on Admission Any Indicators Present on Admission: No History of DVT/PE: No History of Uncontrolled Diabetes: No Review of Systems - Constitutional Constitutional: absent: Chills, Fever - EENT Eyes: absent: Change in Vision - Cardiovascular Cardiovascular: Dyspnea on Exertion. absent: Chest Pain, Dyspnea, Palpitations - Respiratory Respiratory: Cough (dry; no sputum) - Gastrointestinal Gastrointestinal: Nausea. absent: Abdominal Pain, Vomiting - Genitourinary Genitourinary: absent: Dysuria - Musculoskeletal Musculoskeletal: absent: Back Pain, Numbness, Tingling - Integumentary Integumentary: absent: Dry Skin - Neurological Neurological: absent: Focal Weakness, Weakness Past Patient History - Infectious Disease Hx of Infectious Diseases: None - Past Medical History & Family History Past Medical History?: Yes - Past Social History Smoking Status: Never Smoked - CARDIAC Hx Hypertension: Yes (non compliant with meds.) - PULMONARY Hx Respiratory Disorders: No - NEUROLOGICAL Hx Neurological Disorder: No - HEENT Hx HEENT Problems: No - RENAL Hx Chronic Kidney Disease: No - ENDOCRINE/METABOLIC Hx Endocrine Disorders: No - HEMATOLOGICAL/ONCOLOGICAL Hx Blood Disorders: No - INTEGUMENTARY Hx Dermatological Problems: No - MUSCULOSKELETAL/RHEUMATOLOGICAL Hx Falls: No - GASTROINTESTINAL Hx Gastrointestinal Disorders: No - GENITOURINARY/GYNECOLOGICAL Hx Genitourinary Disorders: No - PSYCHIATRIC Hx Substance Use: No - SURGICAL HISTORY Hx Surgeries: Yes Other/Comment: chest tube - ANESTHESIA Hx Anesthesia: No Hx Anesthesia Reactions: No Hx Malignant Hyperthermia: No Meds Allergies/Adverse Reactions: Allergies Allergy/AdvReac Type Severity Reaction Status Date / Time coconut Allergy ITCHING Verified 01/31/19 05:25 Physical Exam - Constitutional Appears: Non-toxic, No Acute Distress - Head Exam Head Exam: ATRAUMATIC, NORMAL INSPECTION - Eye Exam Eye Exam: EOMI. absent: Scleral icterus Pupil Exam: PERRL - ENT Exam ENT Exam: Mucous Membranes Moist - Respiratory Exam Respiratory Exam: Rales (b/l). absent: Clear to Auscultation Bilateral - Cardiovascular Exam Cardiovascular Exam: Tachycardia, +S1, +S2 - GI/Abdominal Exam GI & Abdominal Exam: Normal Bowel Sounds, Soft, Tenderness (mild diffuse). absent: Distended, Guarding - Extremities Exam Extremities exam: Positive for: pedal edema (1+ b/l; level of mid-pires; indentation of socks present) - Back Exam Back exam: absent: CVA tenderness (L) - Neurological Exam Neurological exam: Alert, CN II-XII Intact, Oriented x3 - Psychiatric Exam Psychiatric exam: Normal Affect, Normal Mood - Skin Skin Exam: Dry, Normal Color, Warm Results - Vital Signs Recent Vital Signs: Last Vital Signs Temp 98.8 F 01/31/19 07:29 Pulse 102 H 01/31/19 08:03 Resp 15 01/31/19 08:03 BP 153/112 H 01/31/19 08:03 Pulse Ox 95 01/31/19 08:03 - Labs Result Diagrams: 01/31/19 05:41 01/31/19 05:41 Labs: Laboratory Results - last 24 hr 01/31/19 01/31/19 01/31/19 05:37 05:41 05:41 WBC 6.5 RBC 4.38 L Hgb 13.3 Hct 40.3 MCV 92.0 MCH 30.4 MCHC 33.0 RDW 14.4 Plt Count 157 MPV 10.3 Neut % (Auto) 73.8 Lymph % (Auto) 14.9 L [place] % (Auto) 9.0 Eos % (Auto) 1.3 Baso % (Auto) 1.0 Neut # (Auto) 4.8 Lymph # (Auto) 1.0 [place] # (Auto) 0.6 Eos # (Auto) 0.1 Baso # (Auto) 0.1 PT 11.4 INR 1.0 APTT 31.5 Sodium Potassium Chloride Carbon Dioxide Anion Gap BUN Creatinine Est GFR ( Amer) Est GFR (Non-Af Amer) POC Glucose (mg/dL) 121 H Random Glucose Calcium Total Bilirubin AST ALT Alkaline Phosphatase Troponin I NT-Pro-B Natriuret Pep Total Protein Albumin Globulin Albumin/Globulin Ratio Alcohol, Quantitative 01/31/19 01/31/19 05:41 05:58 WBC RBC Hgb Hct MCV MCH MCHC RDW Plt Count MPV Neut % (Auto) Lymph % (Auto) [place] % (Auto) Eos % (Auto) Baso % (Auto) Neut # (Auto) Lymph # (Auto) [place] # (Auto) Eos # (Auto) Baso # (Auto) PT INR APTT Sodium 142 Potassium 4.9 Chloride 108 H Carbon Dioxide 22 Anion Gap 17 BUN 8 L Creatinine 0.8 Est GFR ( Amer) > 60 Est GFR (Non-Af Amer) > 60 POC Glucose (mg/dL) Random Glucose 126 H Calcium 8.8 Total Bilirubin 1.2 AST 71 H D ALT 33 Alkaline Phosphatase 76 Troponin I 0.0530 NT-Pro-B Natriuret Pep 1190 H Total Protein 8.1 Albumin 4.8 Globulin 3.3 Albumin/Globulin Ratio 1.5 Alcohol, Quantitative 148 H Assessment & Plan - Assessment and Plan (Free Text) Plan: CHF exacerbation (HFrEF) Status: Acute Observe on tele x 24 hrs Head of Bed to 45 degress, daily wts, strict I & Os BNP 1190, troponin negative x 3 CXR (01/31/19): Cardiomegaly, mild venous congestion, patchy markings at left base, tortuous ectatic aorta EKG (01/31/19): sinus tachy @ 117 bpm, no acute ST/T wave changes Lasix 40mg IV given once in ED Lasix 20mg IV Q12H Coreg 6.25mg PO BID Lisinopril 5mg POO Q24H ASA 81mg PO Daily f/u TSH, Free T4, Lipid panel, CBC, CMP EtOH withdrawl Status: acute EtoH level 148 CIWA protocol Librium taper MV/FA/Thiamine PO f/u B12, Folate Peripheral Edema Status: Acute 1+ pitting edema f/u Venous Doppler to r/o dvt if negative, can start SCDs Transaminitis Status: chronic AST/ALT 2:1 elevation (c/w chronic EtOH) Monitor Hx HTN (poor control) Status: chronic Coreg 6.25mg PO BID Lisinopril 5mg POO Q24H History of Hyperlipidemia Crestor 5mg (home Lipitor 10mg non-formulary) PPX GI: Protonix 40mg PO Daily Heparin 5000u Q12h SCDs C/i due to peripheral swelling; if DVT negative can restart SCDs Disposition: Pt acutely CHF exacerbation; will diurese and start Librium taper for chronic EtOH; will consider detox when medically stable Lawson Cheema PGY3 D/w Dr Narcisa Rubalcava <Prasanna Rubalcava - Last Filed: 02/03/19 13:12> Results - Vital Signs Recent Vital Signs: Last Vital Signs Temp 98.1 F 02/01/19 07:48 Pulse 88 02/01/19 07:48 Resp 20 02/01/19 07:48 BP 146/97 H 02/01/19 07:48 Pulse Ox 98 02/01/19 07:48 - Labs Result Diagrams: 02/01/19 08:52 02/01/19 08:52 Attending/Attestation - Attestation I have personally seen and examined this patient.: Yes I have fully participated in the care of the patient.: Yes I have reviewed all pertinent clinical information: Yes Notes (Text): 02/03/19 13:12 This is a late entry. Care of this patient was gone over in detail with Dr. Nedra Cheema. Prasanna Rubalcava D.O.
--- NOTE | 2019-01-31 08:30 | RAD ---
Chest x-ray single frontal view HISTORY: Chest pain. COMPARISON: 03/25/2018 FINDINGS: Mild venous congestion. Mild right midlung atelectasis. Patchy increased consolidative changes in the left mid to lower lung zone. Cardiomegaly. Enlarged ectatic aorta. Degenerative changes in the spine and shoulders. Impression: Mild venous congestion. Mild right midlung atelectasis. Patchy increased consolidative changes in the left mid to lower lung zone. Cardiomegaly. Enlarged ectatic aorta.
--- NOTE | 2019-01-31 08:38 | RAD ---
Chest x-ray two views HISTORY: Detox. COMPARISON: 10/14/2016 FINDINGS: Mild venous congestion. Patchy increased markings at the left lung base. Clinical correlation. Cardiomegaly. Tortuous ectatic aorta. Degenerative changes in the spine. Impression: Mild venous congestion. Patchy increased markings at the left lung base. Clinical correlation. Cardiomegaly. Tortuous ectatic aorta.
[2019-01-31 08:48] LABS: BARBITURATES, UR NEGATIVE (NEGATIVE); BENZODIAZEPINES, UR NEGATIVE (NEGATIVE); OPIATES, UR NEGATIVE (NEGATIVE); PHENCYCLIDINE, UR NEGATIVE (NEGATIVE)
[2019-01-31] MEDS: Multiple Vitamins Tab PO SCH (10:41)
[2019-01-31 23:09] VITALS: RESP 20
--- NOTE | 2019-02-01 07:24 | CP.PCM.PN ---
<Lawson Cheema - Last Filed: 02/01/19 11:10> Subjective - Date & Time of Evaluation Date of Evaluation: 02/01/19 Time of Evaluation: 07:23 - Subjective Subjective: PGY3 note for Dr Rubalcava's service Pt seen and examined at bedside. Nursing reports no acute events overnight. Patient found resting comfortably in [address]B. He is AAO x3 and aware of context of admission. States he is breathing "better" today, and is able to walk to bathr oom wihtout difficulty. He has not tried to walk around nurses station yet. States swelling in his legs has improved since Iv lasix given. Dry cough is greatly improved as well. Reports tremors have improved since librium taper. Denies fever, chills, chest pain, dyspnea at rest, palpitations, dysuria, or urinary frequency. Objective - Vital Signs/Intake and Output Vital Signs (last 24 hours): Temp Pulse Resp BP Pulse Ox 98.4 F 77 20 145/95 H 95 01/31/19 23:08 01/31/19 23:08 01/31/19 23:08 02/01/19 06:14 01/31/19 23:08 - Medications Medications: Current Medications Aspirin (Aspirin Chewable) 81 mg PO DAILY [facility] Last Admin: 01/31/19 10:41 Dose: 81 mg Carvedilol (Coreg) 6.25 mg PO BID [facility] Last Admin: 01/31/19 17:35 Dose: 6.25 mg Chlordiazepoxide (Librium) 25 mg PO Q6 [facility]; Taper Stop: 02/04/19 11:59 Last Admin: 02/01/19 06:14 Dose: 25 mg Folic Acid (Folic Acid) 1 mg PO DAILY [facility] Last Admin: 01/31/19 10:42 Dose: 1 mg Furosemide (Lasix) 20 mg IVP Q12H [facility] Last Admin: 02/01/19 06:14 Dose: 20 mg Heparin Sodium (Porcine) (Heparin) 5,000 units SC Q12 [facility] Last Admin: 01/31/19 21:08 Dose: 5,000 units Lisinopril (Zestril) 5 mg PO Q24H [facility] Last Admin: 01/31/19 14:02 Dose: 5 mg Multivitamins (Hexavitamin) 1 tab PO DAILY [facility] Last Admin: 01/31/19 10:41 Dose: Not Given Pantoprazole Sodium (Protonix Ec Tab) 40 mg PO DAILY [facility] Rosuvastatin Calcium (Crestor) 5 mg PO HS [facility] Last Admin: 01/31/19 21:09 Dose: 5 mg Thiamine HCl (Vitamin B1 Tab) 100 mg PO DAILY [facility] Last Admin: 01/31/19 10:41 Dose: Not Given - Labs Labs: 01/31/19 05:41 01/31/19 05:41 PT 11.4 SECONDS (9.7-12.2) 01/31/19 05:41 INR 1.0 01/31/19 05:41 APTT 31.5 SECONDS (21-34) 01/31/19 05:41 - Additional Findings Additional findings: - Constitutional Appears: Non-toxic, No Acute Distress - Head Exam Head Exam: ATRAUMATIC, NORMAL INSPECTION - Eye Exam Eye Exam: EOMI. absent: Scleral icterus Pupil Exam: PERRL - ENT Exam ENT Exam: Mucous Membranes Moist - Respiratory Exam Respiratory Exam: Rales (b/l). absent: Clear to Auscultation Bilateral - Cardiovascular Exam Cardiovascular Exam: Tachycardia, +S1, +S2 -hepatojugular reflex present - GI/Abdominal Exam GI & Abdominal Exam: Normal Bowel Sounds, Soft, Tenderness (mild diffuse). absent: Distended, Guarding - Extremities Exam Extremities exam: Positive for: pedal edema (1+ b/l; level of mid-pires; indentation of socks present) - Back Exam Back exam: absent: CVA tenderness (L) - Neurological Exam Neurological exam: Alert, CN II-XII Intact, Oriented x3 - Psychiatric Exam Psychiatric exam: Normal Affect, Normal Mood - Skin Skin Exam: Dry, Normal Color, Warm Assessment and Plan - Assessment and Plan (Free Text) Plan: CHF exacerbation (HFrEF) Status: Acute Observe on tele x 24 hrs Head of Bed to 45 degress, daily wts, strict I & Os BNP 1190, troponin negative x 3 CXR (01/31/19): Cardiomegaly, mild venous congestion, patchy markings at left base, tortuous ectatic aorta EKG (01/31/19): sinus tachy @ 117 bpm, no acute ST/T wave changes Lasix 40mg IV given once in ED Lasix 20mg IV Q12H Coreg 6.25mg PO BID Lisinopril 5mg POO Q24H ASA 81mg PO Daily TSH, Free T4 WNL Lipid panel T chol 244, LDL 115, HDL 117 (ASCVD risk: 6.6%) A1c 5.9 (03/25/18) - f/u repeat in AM f/u ECHO CAD pt with multiple RFs (HTN, IGT, obesity) Lipid panel T chol 244, LDL 115, HDL 117 (ASCVD risk: 6.6%) ASA 81mg PO Daily EtOH withdrawl Status: acute EtoH level 148 CIWA protocol Librium taper MV/FA/Thiamine PO B12 399 Folate 19.6 Peripheral Edema Status: Acute 1+ pitting edema f/u Venous Doppler to r/o dvt if negative, can start SCDs Transaminitis Status: chronic AST/ALT 2:1 elevation (c/w chronic EtOH) Monitor Hx HTN (poor control) Status: chronic Coreg 6.25mg PO BID Lisinopril 5mg POO Q24H History of Hyperlipidemia Crestor 5mg (home Lipitor 10mg non-formulary) electrolyte abnormality Hypokalemia - repleted PPX GI: Protonix 40mg PO Daily Heparin 5000u Q12h SCDs C/i due to peripheral swelling; if DVT negative can restart SCDs Disposition: CHF exacerbation improving will continue diuresis and Librium taper; f/u ECHO in AM; will consider detox when medically stable Lawson Cheema PGY3 D/w Dr Narcisa Rubalcava <Prasanna Rubalcava - Last Filed: 02/03/19 13:20> Objective - Vital Signs/Intake and Output Vital Signs (last 24 hours): Temp Pulse Resp BP Pulse Ox 98.1 F 88 20 146/97 H 98 02/01/19 07:48 02/01/19 07:48 02/01/19 07:48 02/01/19 07:48 02/01/19 07:48 - Labs Labs: 02/01/19 08:52 02/01/19 08:52 PT 11.4 SECONDS (9.7-12.2) 01/31/19 05:41 INR 1.0 01/31/19 05:41 APTT 31.5 SECONDS (21-34) 01/31/19 05:41 Attending/Attestation - Attestation I have personally seen and examined this patient.: Yes I have fully participated in the care of the patient.: Yes I have reviewed all pertinent clinical information, including history, physical exam and plan: Yes Notes (Text): 02/03/19 13:20 This is a late entry. Care of this patient was gone over in detail with Dr. Eduar Cheema. Prasanna Rubalcava D.O.
[2019-02-01 07:49] VITALS: BP 146/97; PULSE 88; TEMP 98.1; O2SAT 98
[2019-02-01 09:03] LABS: BASO # 0.1 K/uL (0.0-0.2); BASO % 0.9 % (0.0-2.0); EOS # 0.2 K/uL (0.0-0.7); EOS % 3.1 % (0.0-4.0); HEMOGLOBIN 14.8 g/dL (12.0-18.0); LYMPH # 0.8 K/uL (1.0-4.3); LYMPH % 12.5 % (20.0-40.0); MEAN CELL VOLUME 92.4 fL (80.0-94.0); MEAN CORPUSCULAR HGB CONC 33.5 g/dL (33.0-37.0); MEAN PLATELET VOLUME 10.7 fL (7.2-11.7); MONO # 0.7 K/uL (0.0-0.8); MONO % 10.9 % (0.0-10.0); NEUT # 4.9 K/uL (1.8-7.0); NEUT % 72.6 % (50.0-75.0); RBC 4.79 Mil/uL (4.40-5.90); RED CELL DISTRIBUTION WIDTH 14.2 % (11.5-14.5); WHITE BLOOD COUNT 6.7 K/uL (4.8-10.8)
[2019-02-01] MEDS: Multiple Vitamins Tab PO SCH (09:39)
[2019-02-01 09:47] LABS: ALB/GLOB RATIO 1.4 (1.0-2.1); ALBUMIN 4.4 g/dL (3.5-5.0); ALT/SGPT 41 U/L (21-72); AST/SGOT 69 U/L (17-59); BLOOD UREA NITROGEN 16 mg/dL (9-20); GFR NON-AFRICAN AMERICAN > 60
[2019-02-01 09:58] LABS: LDL CHOLESTEROL 115 mg/dL (0-129)
[2019-02-01] MEDS ORDERED: Pantoprazole 40 mg EC Tab PO SCH (10:00)
[2019-02-01 10:06] LABS: HDL CHOLESTEROL 117 mg/dL (30-70)
[2019-02-01 10:53] LABS: FOLATE 19.6 ng/mL
--- NOTE | 2019-02-01 10:59 | CP.PCM.PCO ---
Physician Communication Note - Physician Communication Note Physician Communication Note: Please see above
--- NOTE | 2019-02-01 14:11 | CP.PCM.DIS ---
<Lawson Cheema - Last Filed: 02/01/19 14:12> Provider - Provider Date of Admission: 01/31/19 06:26 Attending physician: Julia Bird MD Primary care physician: NONE Consults: NONE Time Spent in preparation of Discharge (in minutes): 37 Diagnosis - Discharge Diagnosis (1) Alcohol intoxication Status: Acute Comment: Alcohol level elevated; Tremors at admission. Librium taper. see full hospital course (2) CHF (congestive heart failure) Status: Acute Comment: CHF Exacerbation (HFrEF). see full hospital course Hospital Course - Lab Results Lab Results: Most Recent Lab Values WBC 6.7 K/uL (4.8-10.8) 02/01/19 08:52 RBC 4.79 Mil/uL (4.40-5.90) 02/01/19 08:52 Hgb 14.8 g/dL (12.0-18.0) 02/01/19 08:52 Hct 44.2 % (35.0-51.0) 02/01/19 08:52 MCV 92.4 fL (80.0-94.0) 02/01/19 08:52 MCH 31.0 pg (27.0-31.0) 02/01/19 08:52 MCHC 33.5 g/dL (33.0-37.0) 02/01/19 08:52 RDW 14.2 % (11.5-14.5) 02/01/19 08:52 Plt Count 130 K/uL (130-400) 02/01/19 08:52 MPV 10.7 fL (7.2-11.7) 02/01/19 08:52 Neut % (Auto) 72.6 % (50.0-75.0) 02/01/19 08:52 Lymph % (Auto) 12.5 % (20.0-40.0) L 02/01/19 08:52 Anson % (Auto) 10.9 % (0.0-10.0) H 02/01/19 08:52 Eos % (Auto) 3.1 % (0.0-4.0) 02/01/19 08:52 Baso % (Auto) 0.9 % (0.0-2.0) 02/01/19 08:52 Neut # (Auto) 4.9 K/uL (1.8-7.0) 02/01/19 08:52 Lymph # (Auto) 0.8 K/uL (1.0-4.3) L 02/01/19 08:52 Anson # (Auto) 0.7 K/uL (0.0-0.8) 02/01/19 08:52 Eos # (Auto) 0.2 K/uL (0.0-0.7) 02/01/19 08:52 Baso # (Auto) 0.1 K/uL (0.0-0.2) 02/01/19 08:52 PT 11.4 SECONDS (9.7-12.2) 01/31/19 05:41 INR 1.0 01/31/19 05:41 APTT 31.5 SECONDS (21-34) 01/31/19 05:41 Sodium 138 mmol/L (132-148) 02/01/19 08:52 Potassium 3.4 mmol/L (3.6-5.2) L 02/01/19 08:52 Chloride 97 mmol/L (98-107) L 02/01/19 08:52 Carbon Dioxide 29 mmol/L (22-30) 02/01/19 08:52 Anion Gap 15 (10-20) 02/01/19 08:52 BUN 16 mg/dL (9-20) 02/01/19 08:52 Creatinine 1.0 mg/dL (0.8-1.5) 02/01/19 08:52 Est GFR ( Amer) > 60 02/01/19 08:52 Est GFR (Non-Af Amer) > 60 02/01/19 08:52 POC Glucose (mg/dL) 121 mg/dL (65-110) H 01/31/19 05:37 Random Glucose 119 mg/dL (75-110) H 02/01/19 08:52 Calcium 9.0 mg/dl (8.6-10.4) 02/01/19 08:52 Phosphorus 3.9 mg/dL (2.5-4.5) 02/01/19 08:52 Magnesium 1.8 mg/dL (1.6-2.3) 02/01/19 08:52 Total Bilirubin 1.7 mg/dL (0.2-1.3) H 02/01/19 08:52 AST 69 U/L (17-59) H 02/01/19 08:52 ALT 41 U/L (21-72) 02/01/19 08:52 Alkaline Phosphatase 72 U/L (38-126) 02/01/19 08:52 Troponin I 0.0490 ng/mL (0.00-0.120) 01/31/19 10:52 NT-Pro-B Natriuret Pep 1190 pg/mL (0-900) H 01/31/19 05:41 Total Protein 7.6 g/dL (6.3-8.3) 02/01/19 08:52 Albumin 4.4 g/dL (3.5-5.0) 02/01/19 08:52 Globulin 3.1 gm/dL (2.2-3.9) 02/01/19 08:52 Albumin/Globulin Ratio 1.4 (1.0-2.1) 02/01/19 08:52 Triglycerides 98 mg/dL (0-149) D 02/01/19 08:52 Cholesterol 244 mg/dL (0-199) H 02/01/19 08:52 LDL Cholesterol Direct 115 mg/dL (0-129) 02/01/19 08:52 HDL Cholesterol 117 mg/dL (30-70) H 02/01/19 08:52 Vitamin B12 399 pg/mL (239-931) 02/01/19 08:52 Folate 19.6 ng/mL 02/01/19 08:52 Free T4 0.99 ng/dL (0.78-2.19) 02/01/19 08:52 TSH 3rd Generation 1.89 mIU/L (0.46-4.68) 02/01/19 08:52 Urine Opiates Screen Negative (NEGATIVE) 01/31/19 08:19 Urine Methadone Screen Negative (NEGATIVE) 01/31/19 08:19 Ur Barbiturates Screen Negative (NEGATIVE) 01/31/19 08:19 Ur Phencyclidine Scrn Negative (NEGATIVE) 01/31/19 08:19 Ur Amphetamines Screen Negative (NEGATIVE) 01/31/19 08:19 U Benzodiazepines Scrn Negative (NEGATIVE) 01/31/19 08:19 U Oth Cocaine Metabols Negative (NEGATIVE) 01/31/19 08:19 U Cannabinoids Screen Negative (NEGATIVE) 01/31/19 08:19 Alcohol, Quantitative 148 mg/dl (0-10) H 01/31/19 05:58 - Hospital Course Hospital Course: On admission: Patient is a 58 y/o male, with history of EtOH abuse, CHF and hypertension, who presents for worsening shortness of breath and alcohol abuse. Patient with admission to [facility] in 03/2018, and was diagnosed with systolic CHF. Patient admits he did not follow up with the clinic or take any medication prescribed at discharge. He states that over the past few days he has been unable to walk his normal "4 blocks" and has become SOB just walking the few steps up to his apartment. He states he normally is able to sleep flat but lately has been using two pillows to prop himself up which "helped a little." Admits dry cough, and leg swelling is "as bad as it was when he was admitted last year." Denies fever, chills, chest pain, dyspnea at rest, palpitations, dysuria, or urinary frequency. Patient endorses 5 year history of alcohol abuse with approximately "5 beers per day +/- vodka." Denies history of delirium tremens or hallucinations. Denies other drug use or tobacco history. Hospital course Admitted 01/31/19 for EtOH abuse and CHF exacerbation. BNP elevated (1190) at admission, troponin negative x 3. CXR (01/31/19): Cardiomegaly, mild venous congestion, patchy markings at left base, tortuous ectatic aorta. Peripheral edema 1+ bilaterally. Patient clinically improved after diuresis with lasix IV, and restarting home CHF meds (Coreg, Lisinopril). Tremors improved on librium taper. Patient counseled to stop EtOH abuse and was given numbers for AA meetings. He was given refill of CHF medications at time of discharge. Full hospital discharge instructions below: The following instructions will be provided to patient in Stateless: 1). You need to have a primary care physician coordinate your health care. Please follow up with the [facility] that is located on Floor [address] of [facility] located at [address] [place] [address] [address] [facility]. Call [phone] for an appointment to take place in the next 7 days. 2). To help you to stop drinking alcohol which you must do in order to save your life and to prevent further worsening of your heart failure, please go to Alcohol Anonymous meetings. You may call [phone] or [phone] for help and meetings in your area to help you stop drinking alcohol. 3). Please have the following prescriptions filled at your pharmacy on your way home from the hospital. Please use them as directed. You must get future prescriptions from the [facility] clinic so please make sure that you follow up with them before your medications are finished: Asprin 81 mg, 1 tablet by mouth once a day at 8 AM Coreg 6.25 mg, 1 tablet by mouth at 8 AM and 8 PM Furosemide 20 mg, 1 tablet by mouth at 8 AM and 2 PM Lisinopril 5 mg, 1 tablet by mouth once a day at 2 PM Atorvastatin 10 mg, 1 tablet by mouth once a day at 8 PM 4). Please make sure to take a multivitamin everyday. You do not need a prescription for this. 5). You seem to be a very nice person. Although we have only spent a little time together, we care about what happens to you. So please take care of yourself and follow these instructions. Prasanna Rubalcava D.O. - Date & Time of H&P Date of H&P: 01/31/19 Time of H&P: 08:15 Discharge Exam - Additional Findings Additional findings: - Constitutional Appears: Non-toxic, No Acute Distress - Head Exam Head Exam: ATRAUMATIC, NORMAL INSPECTION - Eye Exam Eye Exam: EOMI. absent: Scleral icterus Pupil Exam: PERRL - ENT Exam ENT Exam: Mucous Membranes Moist - Respiratory Exam Respiratory Exam: Rales (b/l). absent: Clear to Auscultation Bilateral - Cardiovascular Exam Cardiovascular Exam: Tachycardia, +S1, +S2 -hepatojugular reflex present - GI/Abdominal Exam GI & Abdominal Exam: Normal Bowel Sounds, Soft, Tenderness (mild diffuse). absent: Distended, Guarding - Extremities Exam Extremities exam: Positive for: pedal edema (improved; trace) - Back Exam Back exam: absent: CVA tenderness (L) - Neurological Exam Neurological exam: Alert, CN II-XII Intact, Oriented x3 - Psychiatric Exam Psychiatric exam: Normal Affect, Normal Mood - Skin Skin Exam: Dry, Normal Color, Warm Discharge Plan - Discharge Medications Prescriptions: Aspirin [Aspirin Chewable] 81 mg PO DAILY #30 chew Atorvastatin [Lipitor] 10 mg PO DAILY #30 tab Carvedilol [Coreg] 6.25 mg PO BID #60 tab Furosemide [Lasix] 20 mg PO BID #60 tab Lisinopril [Zestril] 5 mg PO DAILY #30 tab - Follow Up Plan Condition: FAIR Disposition: HOME/ ROUTINE Instructions: Alcohol Use - When Is Drinking a Problem?, Heart Failure, Adult (DC), Alcohol Withdrawal (DC), Alcohol Abuse and Alcoholism (DC) Additional Instructions: Las siguientes instrucciones sern proporcionadas al paciente en espaol: 1). Debe tener un mdico de atencin primaria que coordine [place] atencin mdica. Por favor, siga con la [facility] que se encuentra en el [address] del [facility] ubicado en [address] [facility]. Llame al [phone] para programar louisa tereza en los prximos 7 clement. 2). Para ayudarlo a dejar de beber alcohol, lo que debe hacer para salvar [place] bladimir y evitar un empeoramiento de [place] insuficiencia cardaca, vaya a las reuniones de Alcohol Anonymous. Puede llamar al [phone] o al [phone] para pedir ayuda y reuniones en [place] silvia para ayudarlo a dejar de beber alcohol. 3). Por favor, llene las siguientes recetas en [place] farmacia de nohemi a casa desde el hospital. Por favor utilcelos ozzy se indica. Debe obtener futuras recetas de la clnica de [facility], as que asegrese de hacer un seguimiento de ellas antes de que finalicen damaso medicamentos: Asprin 81 mg, 1 tableta por va oral louisa vez al da a las 8 AM Coreg 6.25 mg, 1 tableta por va oral a las 8 AM y 8 PM Furosemida 20 mg, 1 tableta por va oral a las 8 AM y 2 PM Lisinopril 5 mg, 1 tableta por va oral louisa vez al da a las 2 PM Atorvastatina 10 mg, 1 tableta por va oral louisa vez al da a las 8 p. M. 4). Por favor, asegrese de channing un multivitamnico todos los clement. No necesitas louisa receta para esto. 5). Pareces ser louisa persona muy agradable. Aunque solo hemos pasado un poco de tiempo juntos, nos importa lo que le suceda. As que por favor cudate y sigue estas instrucciones. Prasanna Rubalcava D.O. The following instructions will be provided to patient in Stateless: 1). You need to have a primary care physician coordinate your health care. Please follow up with the [facility] that is located on Floor [address] of [facility] located at [address] [place] [address] [address] [facility]. Call [phone] for an appointment to take place in the next 7 days. 2). To help you to stop drinking alcohol which you must do in order to save your life and to prevent further worsening of your heart failure, please go to Alcohol Anonymous meetings. You may call [phone] or [phone] for help and meetings in your area to help you stop drinking alcohol. 3). Please have the following prescriptions filled at your pharmacy on your way home from the hospital. Please use them as directed. You must get future prescriptions from the [facility] so please make sure that you follow up with them before your medications are finished: Asprin 81 mg, 1 tablet by mouth once a day at 8 AM Coreg 6.25 mg, 1 tablet by mouth at 8 AM and 8 PM Furosemide 20 mg, 1 tablet by mouth at 8 AM and 2 PM Lisinopril 5 mg, 1 tablet by mouth once a day at 2 PM Atorvastatin 10 mg, 1 tablet by mouth once a day at 8 PM 4). Please make sure to take a multivitamin everyday. You do not need a prescription for this. 5). You seem to be a very nice person. Although we have only spent a little time together, we care about what happens to you. So please take care of yourself and follow these instructions. Prasanna Rubalcava D.O. Clinical Quality Measures - CQM - Heart Failure Ejection Fraction: Less Than 40 % TIMA Inhibitor Prescribed: Yes Beta-Neisha Prescribed: Carvedilol Angiotensin II Receptor Neisha Prescribed: No Contraindication/Reason for not providing: on TIMA AnticoagulationTherapy for Atrial Fibrillation/Atrialflutter: No Contraindication/Reason for not providing: no afib Aldosterone Antagonist Prescribed: No Contraindication/Reason for not providing: not indicated Hydralazine Nitrate Prescribed: No Contraindication/Reason for not providing: not indicated Implantable Cardioverter Defibrillator Therapy: No Contraindication/Reason for not providing: not indicated Cardiac Resynchronization Therapy Prescribed: No Contraindication/Reason for not providing: not indicated Will be discharged to: Home Follow Up Date (must be within 7 days from discharge): 02/06/19 Follow Up Time: 08:00 - Date & Time of Discharge Summary Date of Discharge Summary: 02/01/19 Time of Discharge Summary: 14:11 <Prasanna Rubalcava - Last Filed: 02/03/19 13:22> Provider - Provider Date of Admission: 01/31/19 06:26 Attending physician: Julia Bird MD Hospital Course - Lab Results Lab Results: Most Recent Lab Values WBC 6.7 K/uL (4.8-10.8) 02/01/19 08:52 RBC 4.79 Mil/uL (4.40-5.90) 02/01/19 08:52 Hgb 14.8 g/dL (12.0-18.0) 02/01/19 08:52 Hct 44.2 % (35.0-51.0) 02/01/19 08:52 MCV 92.4 fL (80.0-94.0) 02/01/19 08:52 MCH 31.0 pg (27.0-31.0) 02/01/19 08:52 MCHC 33.5 g/dL (33.0-37.0) 02/01/19 08:52 RDW 14.2 % (11.5-14.5) 02/01/19 08:52 Plt Count 130 K/uL (130-400) 02/01/19 08:52 MPV 10.7 fL (7.2-11.7) 02/01/19 08:52 Neut % (Auto) 72.6 % (50.0-75.0) 02/01/19 08:52 Lymph % (Auto) 12.5 % (20.0-40.0) L 02/01/19 08:52 Anson % (Auto) 10.9 % (0.0-10.0) H 02/01/19 08:52 Eos % (Auto) 3.1 % (0.0-4.0) 02/01/19 08:52 Baso % (Auto) 0.9 % (0.0-2.0) 02/01/19 08:52 Neut # (Auto) 4.9 K/uL (1.8-7.0) 02/01/19 08:52 Lymph # (Auto) 0.8 K/uL (1.0-4.3) L 02/01/19 08:52 Anson # (Auto) 0.7 K/uL (0.0-0.8) 02/01/19 08:52 Eos # (Auto) 0.2 K/uL (0.0-0.7) 02/01/19 08:52 Baso # (Auto) 0.1 K/uL (0.0-0.2) 02/01/19 08:52 PT 11.4 SECONDS (9.7-12.2) 01/31/19 05:41 INR 1.0 01/31/19 05:41 APTT 31.5 SECONDS (21-34) 01/31/19 05:41 Sodium 138 mmol/L (132-148) 02/01/19 08:52 Potassium 3.4 mmol/L (3.6-5.2) L 02/01/19 08:52 Chloride 97 mmol/L (98-107) L 02/01/19 08:52 Carbon Dioxide 29 mmol/L (22-30) 02/01/19 08:52 Anion Gap 15 (10-20) 02/01/19 08:52 BUN 16 mg/dL (9-20) 02/01/19 08:52 Creatinine 1.0 mg/dL (0.8-1.5) 02/01/19 08:52 Est GFR ( Amer) > 60 02/01/19 08:52 Est GFR (Non-Af Amer) > 60 02/01/19 08:52 POC Glucose (mg/dL) 121 mg/dL (65-110) H 01/31/19 05:37 Random Glucose 119 mg/dL (75-110) H 02/01/19 08:52 Calcium 9.0 mg/dl (8.6-10.4) 02/01/19 08:52 Phosphorus 3.9 mg/dL (2.5-4.5) 02/01/19 08:52 Magnesium 1.8 mg/dL (1.6-2.3) 02/01/19 08:52 Total Bilirubin 1.7 mg/dL (0.2-1.3) H 02/01/19 08:52 AST 69 U/L (17-59) H 02/01/19 08:52 ALT 41 U/L (21-72) 02/01/19 08:52 Alkaline Phosphatase 72 U/L (38-126) 02/01/19 08:52 Troponin I 0.0490 ng/mL (0.00-0.120) 01/31/19 10:52 NT-Pro-B Natriuret Pep 1190 pg/mL (0-900) H 01/31/19 05:41 Total Protein 7.6 g/dL (6.3-8.3) 02/01/19 08:52 Albumin 4.4 g/dL (3.5-5.0) 02/01/19 08:52 Globulin 3.1 gm/dL (2.2-3.9) 02/01/19 08:52 Albumin/Globulin Ratio 1.4 (1.0-2.1) 02/01/19 08:52 Triglycerides 98 mg/dL (0-149) D 02/01/19 08:52 Cholesterol 244 mg/dL (0-199) H 02/01/19 08:52 LDL Cholesterol Direct 115 mg/dL (0-129) 02/01/19 08:52 HDL Cholesterol 117 mg/dL (30-70) H 02/01/19 08:52 Vitamin B12 399 pg/mL (239-931) 02/01/19 08:52 Folate 19.6 ng/mL 02/01/19 08:52 Free T4 0.99 ng/dL (0.78-2.19) 02/01/19 08:52 TSH 3rd Generation 1.89 mIU/L (0.46-4.68) 02/01/19 08:52 Urine Opiates Screen Negative (NEGATIVE) 01/31/19 08:19 Urine Methadone Screen Negative (NEGATIVE) 01/31/19 08:19 Ur Barbiturates Screen Negative (NEGATIVE) 01/31/19 08:19 Ur Phencyclidine Scrn Negative (NEGATIVE) 01/31/19 08:19 Ur Amphetamines Screen Negative (NEGATIVE) 01/31/19 08:19 U Benzodiazepines Scrn Negative (NEGATIVE) 01/31/19 08:19 U Oth Cocaine Metabols Negative (NEGATIVE) 01/31/19 08:19 U Cannabinoids Screen Negative (NEGATIVE) 01/31/19 08:19 Alcohol, Quantitative 148 mg/dl (0-10) H 01/31/19 05:58 Attending/Attestation - Attestation I have personally seen and examined this patient.: Yes I have fully participated in the care of the patient.: Yes I have reviewed all pertinent clinical information, including history, physical exam and plan: Yes Notes (Text): 02/03/19 13:22 This is a late entry. Care of this patient was gone over in detail with Dr. Eduar Cheema. Prasanna Rubalcava D.O.
--- NOTE | 2019-02-02 15:57 | CARD ---
APPROVED REPORT Date of service: 01/31/2019 EKG Measurement Heart [id number] MI 140P [id number] <Conclusion> Sinus tachycardia Voltage criteria for left ventricular hypertrophy Inferior infarct, age undetermined T wave abnormality, consider lateral ischemia Abnormal ECG
== END 2019-02-01 15:14 | disposition home or self-care (01) | DRG 775 ==
LOC: C.ER 05:17 → C.5S 06:26
PROVIDERS: ADMIT Emergency Medicine; ATTEND Emergency Medicine
DX: F10.230 Alcohol dependence with withdrawal, uncomplicated (principal); I50.23 Acute on chronic systolic (congestive) heart failure; I11.0 Hypertensive heart disease with heart failure; F10.220 Alcohol dependence with intoxication, uncomplicated; Y90.6 Blood alcohol level of 120-199 mg/100 ml; R09.02 Hypoxemia; Z91.14 Patient's other noncompliance with medication regimen; I77.819 Aortic ectasia, unspecified site